=== PATIENT | female | born 1935 | race Caucasian/White ===

== ENCOUNTER 2017-04-19 06:09 | Day surgery (SDC) | payer OTHER ==
[2017-04-19] VITALS (8 sets, daily range): BP systolic 116–147; BP diastolic 52–75; PULSE 50–97; RESP 15–19; TEMP 97.6–97.8; O2SAT 51–98
[~2017-04-19] VITALS: Ht 152.4 cm; Wt 41.8 kg
[~2017-04-19 06:09] MED LIST: ACETAMIN-HYDROcod 325-5 MG PO; ALBU8I INH; APIX2.5T PO; ATRO17AE INH; CALC500T21 PO; CARD120T4 PO; COEN400C PO; FURO20 PO; ISOS20TA38 PO; LEVO.025 PO; NITR0.4S SL; REQU0.25 PO; SYMB160A INH
[2017-04-19] MEDS ORDERED: CART120C PO (06:49)
[2017-04-19] MEDS ORDERED: ISOS10TA3 PO (06:49)
[2017-04-19] MEDS ORDERED: ROPI0.25 PO (06:49)
[2017-04-19] MEDS ORDERED: CO Q100C9 PO (06:49)
[2017-04-19] MEDS ORDERED: ASPI-110 PO (06:49)
[2017-04-19] MEDS ORDERED: CALC1TAB87 PO (06:49)
[2017-04-19] MEDS ORDERED: APIX2.5T PO (06:49)
[2017-04-19] MEDS ORDERED: LEVO25TA4 PO (06:49)
[2017-04-19] MEDS ORDERED: NITR0.4S SL (06:49)
[2017-04-19] MEDS ORDERED: SODIUM CHLOR 0.9% 1000 ML INJ 1,000 ML IV SCH (07:15)
[2017-04-19] MEDS ORDERED: LIDOCAINE 1%/EPINEPHrine 1:100,000 SOLN 20 ML VIAL ONE (07:55)
[2017-04-19] MEDS ORDERED: SODIUM BICARBONATE 8.4% INJ 50 ML ONE (07:55)
[2017-04-19] MEDS ORDERED: fentaNYL CITRATE 250 MCG/5 ML AMP ONE (07:57)
[2017-04-19] MEDS ORDERED: THROMBIN (TOPICAL) 5,000 UNIT VIAL ONE (07:57)
[2017-04-19] MEDS ORDERED: MIDAZOLAM HCL 5 MG/5 ML VIAL ONE (07:57)
--- NOTE | 2017-04-19 10:24 | RADRPT ---
EXAM DATE/TIME: 04/19/2017 08:20 [facility] COMPARISON: No previous studies available for comparison. INDICATIONS : Elevated transaminaes. SEDATION TIME: 10 minutes BIOPSY SITE: liver MEDICATION(S): 1.) 1 mg midazolam (Versed) IV 2.) 50 mcg fentanyl (Sublimaze) IV DEVICE(S): 1.) 18 gauge BioPince needle 10cm MEDICAL HISTORY : None. SURGICAL HISTORY : Duodenal adenoma removed ENCOUNTER: Initial ACUITY: 1 day PAIN SCORE: 0/10 LOCATION: Right abdomen A total of one core specimen(s) were obtained and sent to the laboratory for pathologic evaluation. PROCEDURE: 1. CT guided liver biopsy. 2. Conscious sedation with continuous EKG and oximetry monitoring. Prior to the procedure informed consent was obtained. Any appropriate prior imaging studies were rev iewed. Using automated exposure control and adjustment of the mA and/or kV according to patient size, radiat ion dose was kept as low as reasonably achievable to obtain optimal diagnostic quality images.The sit e was prepped in a sterile fashion. Full sterile technique was used, including cap, mask, sterile gl oves and gown and a large sterile sheet. Hand hygiene and 2% chlorhexidine and/or betadine/alcohol p rep was utilized per protocol for cutaneous antisepsis. The skin and subcutaneous tissues were infil trated with local anesthetic solution. Under CT guidance an 18 gauge core of tissue was obtained. Followup scan reveals no evidence for hem orrhage. Follow-up CT scan reveals no hemorrhage. The patient tolerated the procedure well and there were no complications. The patient was returned to the Radiology Outpatient Unit in stable condition. CONCLUSION: Uncomplicated CT guided biopsy. Nilo Burr MD FACR on April 19, 2017 at 10:21 Board Certified Radiologist. This report was verified electronically.
== END 2017-04-19 13:38 | disposition home or self-care (01) ==
LOC: HRAD 06:09 → HRIP 06:10 → HRAD 13:38
PROVIDERS: ATTEND Family Medicine
DX: K75.9 Inflammatory liver disease, unspecified (principal)
CPT/HCPCS: 47000; 77012; 88307; 88313; J2250; J3010; J7030

== ENCOUNTER 2017-07-02 11:37 | Emergency (ER) | payer OTHER ==
[~2017-07-02] VITALS: Ht 152.4 cm; Wt 40.8 kg
[~2017-07-02 11:37] MED LIST changes: -ACETAMIN-HYDROcod 325-5 MG PO; -ALBU8I INH; +ASPI-110 PO; -ATRO17AE INH; +CALC1TAB87 PO; -CALC500T21 PO; -CARD120T4 PO; +CART120C PO; +CO Q100C9 PO; -COEN400C PO; -FURO20 PO; +ISOS10TA3 PO; -ISOS20TA38 PO; -LEVO.025 PO; +LEVO25TA4 PO; -REQU0.25 PO; +ROPI0.25 PO; -SYMB160A INH
[2017-07-02 11:43] VITALS: BP 131/66; PULSE 61; RESP 16; TEMP 97.7; O2SAT 97
--- NOTE | 2017-07-02 12:16 | PD ---
HPI Chief Complaint: Oral / Dental Pain or Problem Time Seen by Provider: 12:04 Travel History International Travel<30 days: No Contact w/Intl Traveler<30days: No Traveled to known affect area: No History of Present Illness HPI The patient was seen and examined in the presence of the nurse. This patient had dental work done 5 days ago. She had all of her upper teeth removed and dentures fitted. Unfortunately she did not stop her Eliquis and has been taking it all along. She has bleeding from some of the extraction sites in the right side of her upper jaw. She says she does not know why she takes it. She was not told to stop it. Severity is moderate. No alleviating factors. Denies presyncopal symptoms. Duration 5 days PFSH Past Medical History Hx Anticoagulant Therapy: Yes Atrial Fibrillation: Yes Cancer: No Cardiovascular Problems: Yes (a-fib) Coronary Artery Disease: Yes Diabetes: No Diminished Hearing: No Endocrine: Yes Gastrointestinal Disorders: Yes (POLYP, ABDOMINAL PAIN) Genitourinary: No Hepatitis: No Hiatal Hernia: No Hypertension: Yes Immune Disorder: No Musculoskeletal: Yes (ARTHRITIS, BACK) Neurologic: Yes (RESTLESS LEG SYNDROME) Psychiatric: No Reproductive: Yes (PARTIAL HYSTERECTOMY) Respiratory: No Thyroid Disease: Yes ?: Not Past Surgical History AICD: No Body Medical Devices: GREY IN BACK Endocrine Surgery: Yes (THYROIDECTOMY) Gynecologic Surgery: Yes (PARTIAL HYSTERECTOMY) Hysterectomy: Yes Joint Replacement: No Pacemaker: No Social History Alcohol Use: Yes (wine at dinner) Tobacco Use: No Substance Use: No Allergies-Medications (Allergen,Severity, Reaction): Coded Allergies: Sulfa (Sulfonamide Antibiotics) (Unverified Allergy, Severe, RASH, 07/02/17) CAN'T REMEMBER penicillin G (Unverified Allergy, Severe, RASH, 07/02/17) CAN'T REMEMBER aspirin (Unverified Allergy, Intermediate, RASH, 07/02/17) Reported Meds & Prescriptions Reported Meds & Active Scripts Active Reported Co Q 10 (Coenzyme Q10 (Ubidecarenone)) 100 Mg Cap 200 Mg PO DAILY Nitrostat SL (Nitroglycerin) 0.4 Mg Subl 0.4 Mg SL DIRECTED PRN 1 tablet under the tongue as needed for chest pain. Repeat every 5 minutes for a total of 3 DOSES or call 911 if NO relief. Ropinirole 0.25 Mg Tab 0.25 Mg PO TID Eliquis (Apixaban) 2.5 Mg Tab 2.5 Mg PO BID Calcium 600 with Vitamin D (Calcium Carbonate-Cholecalciferol) 600-400 mg-Unit Tab 1 Tab PO DAILY Levothyroxine (Levothyroxine Sodium) 25 Mcg Tab 25 Mcg PO DAILY Isosorbide Mononitrate 10 Mg Tab 5 Mg PO DAILY Take 2 doses 7 hours apart. Cartia Xt (Diltiazem ER 24 HR) 120 Mg Caper 180 Mg PO DAILY Review of Systems General / Constitutional: No: Fever Eyes: No: Visual changes HENT: Positive: Gingival Bleeding, Dental Difficulties, No: Headaches Cardiovascular: No: Chest Pain or Discomfort Respiratory: No: Shortness of Breath Gastrointestinal: No: Abdominal Pain Genitourinary: No: Dysuria Musculoskeletal: No: Pain Skin: No Rash Neurologic: No: Weakness Psychiatric: No: Depression Endocrine: No: Polydipsia Hematologic/Lymphatic: No: Easy Bruising Physical Exam Narrative GENERAL: Well-nourished, well-developed patient in no apparent distress. SKIN: Focused skin assessment reveals no rash and nodules. Skin is Warm and dry. HEAD: Atraumatic. Normocephalic. EYES: Pupils equal and round. No scleral icterus. No injection or drainage. ENT: No nasal bleeding or discharge. Mucous membranes pink and moist. Oral cavity exam reveals all of her upper teeth have been removed. She has oozing of blood from several of the sockets on the right upper jaw. NECK: Trachea midline. No JVD. CARDIOVASCULAR: Regular rate and rhythm. No murmur appreciated. RESPIRATORY: No accessory muscle use. Clear to auscultation. Breath sounds equal bilaterally. GASTROINTESTINAL: Abdomen soft, non-tender, nondistended. Hepatic and splenic margins not palpable. MUSCULOSKELETAL: No obvious deformities. No clubbing. No cyanosis. No edema. NEUROLOGICAL: Awake and alert. No obvious cranial nerve deficits. Motor grossly within normal limits. Normal speech. PSYCHIATRIC: Appropriate mood and affect; insight and judgment normal. Data Data Last Documented VS Vital Signs Date Time Temp Pulse Resp B/P (MAP) Pulse Ox O2 Delivery O2 Flow Rate FiO2 07/02/17 11:43 97.7 61 16 131/66 (87) 97 Orders Orders Iv Access Insert/Monitor (07/02/17 12:13) Complete Blood Count With Diff (07/02/17 12:13) Basic Metabolic Panel (Bmp) (07/02/17 12:13) Gelatin 12 Mm/7 Mm Top (Gelfoam 12 Mm/7 (07/02/17 13:15) Lidoca-Epi Pf 2%-1:200,000 Inj (Xylocain (07/02/17 13:15) Labs Laboratory Tests Test 07/02/17 12:28 White Blood Count 5.9 TH/MM3 Red Blood Count 3.79 MIL/MM3 Hemoglobin 11.5 GM/DL Hematocrit 35.0 % Mean Corpuscular Volume 92.4 FL Mean Corpuscular Hemoglobin 30.3 PG Mean Corpuscular Hemoglobin Concent 32.8 % Red Cell Distribution Width 13.9 % Platelet Count 209 TH/MM3 Mean Platelet Volume 8.3 FL Neutrophils (%) (Auto) 68.8 % Lymphocytes (%) (Auto) 22.4 % Monocytes (%) (Auto) 6.3 % Eosinophils (%) (Auto) 1.7 % Basophils (%) (Auto) 0.8 % Neutrophils # (Auto) 4.1 TH/MM3 Lymphocytes # (Auto) 1.3 TH/MM3 Monocytes # (Auto) 0.4 TH/MM3 Eosinophils # (Auto) 0.1 TH/MM3 Basophils # (Auto) 0.0 TH/MM3 CBC Comment AUTO DIFF Differential Comment AUTO DIFF CONFIRMED Blood Urea Nitrogen 25 MG/DL Creatinine 0.69 MG/DL Random Glucose 95 MG/DL Calcium Level 9.5 MG/DL Sodium Level 129 MEQ/L Potassium Level 4.2 MEQ/L Chloride Level 92 MEQ/L Carbon Dioxide Level 32.6 MEQ/L Anion Gap 4 MEQ/L Estimat Glomerular Filtration Rate 81 ML/MIN [facility] Medical Decision Making Medical Screen Exam Complete: Yes Emergency Medical Condition: Yes Medical Record Reviewed: Yes Differential Diagnosis Gingival bleeding, anticoagulation, postsurgical bleeding Narrative Course I have reviewed the patient's electronic medical record. IV placed CBC shows hemoglobin 11.5 which is better than her last several checks Metabolic profile shows minor abnormalities Having her bite down on gauze roll to apply some direct pressure to the bleeding sites. Direct pressure did not seem to help I spoke with her oral surgeon who is Dr. Maharaj He does not have privileges here but recommended I injected with lidocaine with epinephrine and either use Gelfoam dressing or suture the sockets closed that are bleeding Procedure note: Patient gives verbal consent for the following procedure I used suction to clear out the oral cavity of blood and clots I injected 7 cc of lidocaine with 2% epinephrine around sockets of teeth 1 and 2 which are the only bleeding sockets in her jaw I tried to place Gelfoam dressings these did not sit right and didn't help I then used 2-0 Vicryl and placed 2 sutures across sockets 1 and 2 This stopped the bleeding sufficiently No complications, was tolerated well Let her sit for while and then reassess the bleeding site and there is no bleeding I reviewed what I did with Dr. Maharaj and he will see the patient in his office for follow-up If there is further bleeding patient should call him Avoid blood thinner and use only soft diet such as pudding or Jell-O Diagnosis Primary Impression: Gingival hemorrhage Additional Impressions: Postoperative complication Qualified Codes: K91.841 - Postprocedural hemorrhage of a digestive system organ or structure following other procedure Chronic anticoagulation Additional Instructions: Call Dr. Maharaj if there is any further bleeding Use only soft diet such as pudding or Jell-O Follow-up with Dr. Maharaj soon as the iday weekend is over Med/Other Pt SpecificInfo: Other Disposition: 01 DISCHARGE HOME Condition: Stable Burak De León MD Jul 02, 2017 12:16
[2017-07-02 12:34] LABS: AUTOMATED NEUTROPHIL # 4.1 TH/MM3 (1.8-7.7); BASOPHIL % 0.8 % (0.0-2.0); EOSINOPHIL # 0.1 TH/MM3 (0-0.4); EOSINOPHIL % 1.7 % (0.0-4.0); LYMPH % 22.4 % (9.0-44.0); LYMPHOCYTE # 1.3 TH/MM3 (1.0-4.8); MEAN CELL VOLUME 92.4 FL (80.0-100.0); MEAN CORPUSCULAR HEMOGLOBIN 30.3 PG (27.0-34.0); MEAN CORPUSCULAR HGB CONC 32.8 % (32.0-36.0); MONO % 6.3 % (0.0-8.0); NEUT % 68.8 % (16.0-70.0); PLATELET COUNT 209 TH/MM3 (150-450); RED BLOOD COUNT 3.79 MIL/MM3 (4.00-5.30); RED CELL DISTRIBUTION WIDTH 13.9 % (11.6-17.2); WHITE BLOOD COUNT 5.9 TH/MM3 (4.0-11.0)
[2017-07-02 12:35] LABS: HEMO FLAGS AUTO DIFF
[2017-07-02 12:43] LABS: POTASSIUM 4.2 MEQ/L (3.5-5.1)
[2017-07-02 12:46] LABS: BICARBONATE 32.6 MEQ/L (21.0-32.0)
[2017-07-02 12:57] LABS: SCAN/DIFF AUTO DIFF CONFIRMED
[2017-07-02] MEDS ORDERED: LIDOCAINE 1%/EPINEPHrine 1:100,000 SOLN 50 ML VIAL INFIL ONE (13:15)
[2017-07-02] MEDS ORDERED: LIDOCAINE 2%/EPINEPHrine PF 1:200,000 20ML SDV INFIL ONE (13:15)
[2017-07-02] MEDS ORDERED: LIDOCAINE 1%/EPINEPHrine 1:100,000 SOLN 20 ML VIAL INFIL ONE ×3 (13:15)
[2017-07-02] MEDS ORDERED: GELATIN 12 MM/7 MM FOAM TOPICAL ONE (13:15)
== END 2017-07-02 14:31 | disposition home or self-care (01) ==
LOC: PHED 11:37
DX: K91.841 Postprocedural hemorrhage of a digestive system organ or structure following other procedure (principal); Z79.01 Long term (current) use of anticoagulants; I10 Essential (primary) hypertension; I25.10 Atherosclerotic heart disease of native coronary artery without angina pectoris; I48.91 Unspecified atrial fibrillation; Z88.0 Allergy status to penicillin; M19.90 Unspecified osteoarthritis, unspecified site; G25.81 Restless legs syndrome
CPT/HCPCS: 12011; 80048; 85025

== ENCOUNTER 2017-08-12 14:52 | Inpatient (IN) | payer OTHER, MEDICARE ==
[~2017-08-12] VITALS: Ht 152.4 cm; Wt 42.5 kg
[2017-08-12] VITALS (8 sets, daily range): BP systolic 95–145; BP diastolic 58–64; PULSE 60–62; RESP 12–18; TEMP 97.5–97.9; O2SAT 93–99
[~2017-08-12 14:52] MED LIST changes: -ASPI-110 PO
[2017-08-12] MEDS ORDERED: MORPHINE SULFATE 2 MG/ML INJ IV PUSH ONE ×2 (16:00→18:30)
[2017-08-12] MEDS ORDERED: ONDANSETRON HCL 4 MG/2 ML VIAL IV PUSH ONE (16:00)
[2017-08-12] MEDS ORDERED: SODIUM CHLORID 0.9% 500 ML INJ 500 ML IV ONE (16:00)
--- NOTE | 2017-08-12 16:00 | PD ---
HPI Chief Complaint: Fall Time Seen by Provider: 15:53 Travel History International Travel<30 days: No Contact w/Intl Traveler<30days: No Traveled to known affect area: No History of Present Illness HPI This is an 81-year-old female who presents to the emergency department having had a fall. She says she fell backwards in her house landing on her back and hitting her head. Her back pain is constant, severe, throbbing, and is radiating into her abdomen. She had one episode of vomiting with the VAC and she feels very nauseous. She's never had pain like this before. She says she didn't pass out. PFSH Past Medical History Hx Anticoagulant Therapy: Yes Atrial Fibrillation: Yes Cancer: No Cardiovascular Problems: Yes (a-fib) Coronary Artery Disease: Yes Diabetes: No Diminished Hearing: No Endocrine: Yes Gastrointestinal Disorders: Yes (POLYP, ABDOMINAL PAIN) Genitourinary: No Hepatitis: No Hiatal Hernia: No Hypertension: Yes Immune Disorder: No Medical other: No Musculoskeletal: Yes (ARTHRITIS, BACK) Neurologic: Yes (RESTLESS LEG SYNDROME) Psychiatric: No Reproductive: Yes (PARTIAL HYSTERECTOMY) Respiratory: No Thyroid Disease: Yes Past Surgical History AICD: No Body Medical Devices: GREY IN BACK Endocrine Surgery: Yes (THYROIDECTOMY) Gynecologic Surgery: Yes (PARTIAL HYSTERECTOMY) Hysterectomy: Yes Joint Replacement: No Pacemaker: No Social History Alcohol Use: Yes (wine at dinner) Tobacco Use: No Substance Use: No Allergies-Medications (Allergen,Severity, Reaction): Coded Allergies: Sulfa (Sulfonamide Antibiotics) (Unverified Allergy, Severe, RASH, ) CAN'T REMEMBER penicillin G (Unverified Allergy, Severe, RASH, 08/12/17) CAN'T REMEMBER aspirin (Unverified Allergy, Intermediate, RASH, 08/12/17) Reported Meds & Prescriptions Reported Meds & Active Scripts Active Reported Co Q 10 (Coenzyme Q10 (Ubidecarenone)) 100 Mg Cap 200 Mg PO DAILY Nitrostat SL (Nitroglycerin) 0.4 Mg Subl 0.4 Mg SL DIRECTED PRN 1 tablet under the tongue as needed for chest pain. Repeat every 5 minutes for a total of 3 DOSES or call 911 if NO relief. Ropinirole 0.25 Mg Tab 0.25 Mg PO TID Eliquis (Apixaban) 2.5 Mg Tab 2.5 Mg PO BID Calcium 600 with Vitamin D (Calcium Carbonate-Cholecalciferol) 600-400 mg-Unit Tab 1 Tab PO DAILY Levothyroxine (Levothyroxine Sodium) 25 Mcg Tab 25 Mcg PO DAILY Isosorbide Mononitrate 10 Mg Tab 5 Mg PO DAILY Take 2 doses 7 hours apart. Cartia Xt (Diltiazem ER 24 HR) 120 Mg Caper 180 Mg PO DAILY Review of Systems Except as stated in HPI: all other systems reviewed are Neg Physical Exam Narrative GENERAL: Uncomfortable appearing SKIN: Focused skin assessment warm and dry. HEAD: Atraumatic. Normocephalic. EYES: Pupils equal and round. No injection or drainage. ENT: Moist mucous membranes NECK: Trachea midline. No cervical spine tenderness. CARDIOVASCULAR: Regular rate and rhythm. No murmur appreciated. RESPIRATORY: Clear to auscultation. Breath sounds equal bilaterally. GASTROINTESTINAL: Abdomen soft, tender to palpation in the lower abdomen with no rebound or guarding. MUSCULOSKELETAL: Pain with flexion at the right hip. Tender to palpation along the midline lumbar spinous processes. NEUROLOGICAL: Awake and alert. No obvious cranial nerve deficits. Moving all extremities. PSYCHIATRIC: Appropriate mood and affect; insight and judgment normal. Data Data Last Documented VS Vital Signs Date Time Temp Pulse Resp B/P (MAP) Pulse Ox O2 Delivery O2 Flow Rate FiO2 08/12/17 18:46 62 18 133/64 (87) 93 Room Air 08/12/17 14:[address] Brain W/O Iv Contrast(Rout) (08/12/17 ) Chest, Single Ap (08/12/17 ) Ct Abd/Pel W Iv Contrast(Rout) (08/12/17 ) Ct Lumb Spine W/O Contrast (08/12/17 ) Morphine Inj (Morphine Inj) (08/12/17 16:00) Ondansetron Inj (Zofran Inj) (08/12/17 16:00) Sodium Chlorid 0.9% 500 Ml Inj (Ns 500 M (08/12/17 16:00) Hip, Uni(Ap&Lat) W Ap Pelvis (08/12/17 ) Iohexol 350 Inj (Omnipaque 350 Inj) (08/12/17 16:30) Ng Gastric Tube Insert/Monitor (08/12/17 17:26) Complete Blood Count With Diff (08/12/17 17:43) Comprehensive Metabolic Panel (08/12/17 17:43) Lactic Acid (08/12/17 17:43) Urinalysis - C+S If Indicated (08/12/17 17:43) Cath For Specimen (08/12/17 17:43) Morphine Inj (Morphine Inj) (08/12/17 18:30) Admit Order (Ed Use Only) (08/12/17 19:17) Ciprofloxacin 400 Mg Premix (Cipro 400 M (08/12/17 19:30) Metronidazole 500 Mg Inj (Flagyl 500 Mg (08/12/17 19:30) Blood Culture (08/12/17 19:21) Lactic Acid (08/12/17 19:21) Labs Laboratory Tests Test 08/12/17 18:15 White Blood Count 12.8 TH/MM3 Red Blood Count 3.67 MIL/MM3 Hemoglobin 11.1 GM/DL Hematocrit 33.5 % Mean Corpuscular Volume 91.4 FL Mean Corpuscular Hemoglobin 30.2 PG Mean Corpuscular Hemoglobin Concent 33.0 % Red Cell Distribution Width 14.0 % Platelet Count 251 TH/MM3 Mean Platelet Volume 8.8 FL CBC Comment AUTO DIFF Differential Total Cells Counted 100 Neutrophils % (Manual) 83 % Band Neutrophils % 12 % Lymphocytes % 1 % Monocytes % 4 % Neutrophils # (Manual) 12.2 TH/MM3 Differential Comment FINAL DIFF MANUAL Platelet Estimate NORMAL Platelet Morphology Comment NORMAL Blood Urea Nitrogen 18 MG/DL Creatinine 0.69 MG/DL Random Glucose 92 MG/DL Total Protein 7.1 GM/DL Albumin 3.4 GM/DL Calcium Level 8.8 MG/DL Alkaline Phosphatase 62 U/L Aspartate Amino Transf (AST/SGOT) 43 U/L Alanine Aminotransferase (ALT/SGPT) 28 U/L Total Bilirubin 0.9 MG/DL Sodium Level 127 MEQ/L Potassium Level 4.5 MEQ/L Chloride Level 87 MEQ/L Carbon Dioxide Level 34.8 MEQ/L Anion Gap 5 MEQ/L Estimat Glomerular Filtration Rate 81 ML/MIN Lactic Acid Level 1.3 mmol/L MDM Medical Decision Making Medical Screen Exam Complete: Yes Emergency Medical Condition: Yes Interpretation(s) Afebrile, no tachycardia, normotensive Mild hypoxia Mild leukocytosis 12% bandemia normal lactic acid high grade partial small bowel obstruction on CT Differential Diagnosis Lumbar compression fracture, intracranial hemorrhage, pneumothorax, hemothorax, rib fracture Narrative Course This is an 81-year-old female who presents to the emergency department initially reporting a fall but also complaining of abdominal pain and vomiting. She is placed in a monitor and an IV was established. Labs were obtained which demonstrate a leukocytosis with a 12% bandemia. Cultures were obtained and the patient was started on Cipro and Flagyl. CT abdomen and pelvis demonstrates a high-grade partial small bowel obstruction. I discussed this with Dr. Pavon as one year ago he didn't open duodenal resection on the patient. An NG tube was placed and the patient will be admitted to the hospital for further management. Upon my reassessment the patient's oxygen saturation was in the 80-89% range following NG tube placement. She appears very comparable and is awake and alert. Plan to put her on some supplemental oxygen. Her chest x-rays reassuring currently. It Is not impossible that she aspirated prior to arrival and will have some delayed chest x-ray findings she should be closely observed. Physician Communication Physician Communication Discussed with Dr. Napoles and Dr. Astudillo Diagnosis Primary Impression: Small bowel obstruction Admitting Information Admitting Physician Requests: Admit Mariana Arevalo MD Aug 12, 2017 16:00
[2017-08-12] MEDS ORDERED: IOHEXOL 350 MG/ML 10 ML VIAL (for RAD DIAG) IVCONTRAST ONE (16:30)
--- NOTE | 2017-08-12 16:43 | RADRPT ---
EXAM DATE/TIME: 08/12/2017 16:12 [facility] COMPARISON: CHEST SINGLE AP, May 20, 2016, 11:01. INDICATIONS : Fell, complains of right hip pain. MEDICAL HISTORY : Atrial fib, arthritis SURGICAL HISTORY : Left hip pinning ENCOUNTER: Initial ACUITY: 1 day PAIN SCORE: 10/10 LOCATION: Right hip FINDINGS: The cardiac silhouette is enlarged in transverse diameter. The aortic knob is prominent with tortuosi ty of the descending thoracic aorta. The lungs are free of acute parenchymal opacity. No effusions ar e identified. Macro fibrosis CONCLUSION: 1. Cardiomegaly Chronic fibrotic changes bilaterally unchanged from the prior study. No acute pulmona ry disease. Phil Reed MD on August 12, 2017 at 16:41 Board Certified Radiologist. This report was verified electronically.
--- NOTE | 2017-08-12 16:44 | RADRPT ---
EXAM DATE/TIME: 08/12/2017 16:12 [facility] COMPARISON: No previous studies available for comparison. INDICATIONS : Fall, complains of right hip pain. MEDICAL HISTORY : Atrial fib, arthritis SURGICAL HISTORY : Left hip pinning ENCOUNTER: Initial ACUITY: 1 day PAIN SCORE: 10/10 LOCATION: Right hip FINDINGS: Osseous structures are osteopenic. There is severe osteoarthritis involving the sacralized joints mehreen aterally. There is no evidence of acute fracture. Bony mineralization is normal. Joint spaces are leonor ntained. Old left femoral neck fracture is present. CONCLUSION: 1. There is no evidence of acute fracture. Phil Reed MD on August 12, 2017 at 16:42 Board Certified Radiologist. This report was verified electronically.
--- NOTE | 2017-08-12 17:00 | RADRPT ---
EXAM DATE/TIME: 08/12/2017 16:25 [facility] COMPARISON: CT BRAIN W/O CONTRAST, July 01, 2016, 9:43. INDICATIONS : Fall. RADIATION DOSE: 59.59 CTDIvol (mGy) MEDICAL HISTORY : Cardiovascular disease. Hypertension. Restless leg, afib, CAD. SURGICAL HISTORY : Hysterectomy. ENCOUNTER: Initial ACUITY: 1 day PAIN SCALE: 8/10 LOCATION: cranial TECHNIQUE: Multiple contiguous axial images were obtained of the head. Using automated exposure control and adj ustment of the mA and/or kV according to patient size, radiation dose was kept as low as reasonably a chievable to obtain optimal diagnostic quality images. DICOM format image data is available electro nically for review and comparison. FINDINGS: CEREBRUM: The ventricles are normal for age. No evidence of midline shift, mass lesion, hemorrhage or acute in farction. No extra-axial fluid collections are seen. POSTERIOR FOSSA: The cerebellum and brainstem are intact. The 4th ventricle is midline. The cerebellopontine angle i s unremarkable. EXTRACRANIAL: The visualized portion of the orbits is intact. SKULL: The calvaria is intact. No evidence of skull fracture. CONCLUSION: No acute disease. No evidence of acute infarct, hemorrhage, mass or edema. Eugene Macias MD on August 12, 2017 at 16:57 Board Certified Radiologist. This report was verified electronically.
--- NOTE | 2017-08-12 17:20 | RADRPT ---
EXAM DATE/TIME: 08/12/2017 16:31 [facility] COMPARISON: CT ABDOMEN & PELVIS W CONTRAST, April 21, 2016, 9:49. INDICATIONS : Fall. IV CONTRAST: 96 cc Omnipaque 350 (iohexol) IV ORAL CONTRAST: No oral contrast ingested. RADIATION DOSE: 4.79 CTDIvol (mGy) MEDICAL HISTORY : Cardiovascular disease. Hypertension. Afib, ZORAN, Restless leg. SURGICAL HISTORY : Hysterectomy. ENCOUNTER: Initial ACUITY: 1 day PAIN SCALE: 8/10 LOCATION: Bilateral abdominal TECHNIQUE: Volumetric scanning of the abdomen and pelvis was performed. Using automated exposure control and ad justment of the mA and/or kV according to patient size, radiation dose was kept as low as reasonably achievable to obtain optimal diagnostic quality images. DICOM format image data is available electro nically for review and comparison. FINDINGS: LOWER LUNGS: The visualized lower lungs are clear. LIVER: Homogeneous density without lesion. There is no dilation of the biliary tree. No calcified gallston es. SPLEEN: Normal size without lesion. PANCREAS: 1.9 cm cyst is identified in the head of the pancreas. 6 mm cyst is identified to the pancreas. Pancr eas is otherwise unremarkable. KIDNEYS: Normal in size and shape. There is no mass, stone or hydronephrosis. 2 cm cyst is seen off the midpo le left kidney. ADRENAL GLANDS: Within normal limits. VASCULAR: There is no aortic aneurysm. BOWEL/MESENTERY: The stomach is distended with fluid. There are multiple loops of distended small bowel containing flu id. A transition is identified in the mid right abdomen to normal caliber small bowel. The colon cont ains gas and stool but is relatively collapsed. ABDOMINAL WALL: Within normal limits. RETROPERITONEUM: There is no lymphadenopathy. BLADDER: No wall thickening or mass. REPRODUCTIVE: Uterus is not visualized. INGUINAL: There is no lymphadenopathy or hernia. MUSCULOSKELETAL: Lumbar fusion apparatus is identified. CONCLUSION: 1. Proximal to mid small bowel ileus characteristic of a high grade partial small bowel obstruction. Etiology of obstruction is not clearly visualized. 2. Pancreatic cysts 3. No evidence of extraintestinal fluid collections, free air or suspicious mass. Eugene Macias MD on August 12, 2017 at 16:59 Board Certified Radiologist. This report was verified electronically.
--- NOTE | 2017-08-12 17:28 | RADRPT ---
EXAM DATE/TIME: 08/12/2017 16:31 [facility] COMPARISON: CT LUMBAR SPINE W/O CONTRAST, July 03, 2016, 8:20. INDICATIONS : Fall. RADIATION DOSE: 4.79 CTDIvol (mGy) ; Reconstructed from previous dataset, no dose MEDICAL HISTORY : Cardiovascular disease. Hypertension. afib, CAD, restless leg SURGICAL HISTORY : Hysterectomy. ENCOUNTER: Initial ACUITY: 1 day PAIN SCALE: 8/10 LOCATION: Bilateral lower back TECHNIQUE: Volumetric scanning of the lumbar spine was performed. Multiplanar reconstructions in the sagittal, coronal and oblique axial planes were performed. Using automated exposure control and adjustment of the mA and/or kV according to patient size, radiation dose was kept as low as reasonably achievable t o obtain optimal diagnostic quality images. DICOM format image data is available electronically for review and comparison. FINDINGS: Postsurgical changes following lumbar fusion from from L3-S1 are again noted. The appearance of the lumbar spine is stable compared to previous exam on 07/03/2060. Advanced degenerative disc disease is identified at the L2-3 level. There no findings to suggest acute fracture or traumatic listhesis. There are no destructive bone changes. CONCLUSION: 1. Status post lumbar fusion from L3-S1 with significant metallic artifact obscuring the bony and sof t tissue structures. 2. Stable exam without evidence of acute fracture or traumatic subluxation. 3. Advanced degenerative disc disease at L2-3. 1. Eugene Macias MD on August 12, 2017 at 17:21 Board Certified Radiologist. This report was verified electronically.
[2017-08-12 18:19] LABS: HEMATOCRIT 33.5 % (35.0-46.0); MEAN CELL VOLUME 91.4 FL (80.0-100.0); MEAN CORPUSCULAR HEMOGLOBIN 30.2 PG (27.0-34.0); PLATELET COUNT 251 TH/MM3 (150-450); RED BLOOD COUNT 3.67 MIL/MM3 (4.00-5.30); WHITE BLOOD COUNT 12.8 TH/MM3 (4.0-11.0)
[2017-08-12 18:24] LABS: HEMO FLAGS AUTO DIFF
[2017-08-12 18:31] LABS: CHLORIDE 87 MEQ/L (98-107); POTASSIUM 4.5 MEQ/L (3.5-5.1); SODIUM (NA) 127 MEQ/L (136-145)
[2017-08-12 18:35] LABS: ANION GAP 5 MEQ/L (5-15); BICARBONATE 34.8 MEQ/L (21.0-32.0); BLOOD UREA NITROGEN 18 MG/DL (7-18)
[2017-08-12 18:38] LABS: ALT (GPT) 28 U/L (10-53); AST (GOT) 43 U/L (15-37); GLOMERULAR FILTRATION RATE 81 ML/MIN (>89)
[2017-08-12 18:39] LABS: TOTAL BILIRUBIN ADULT 0.9 MG/DL (0.2-1.0)
[2017-08-12 18:41] LABS: ALKALINE PHOSPHATASE 62 U/L (45-117)
[2017-08-12 19:12] LABS: BANDS 12 % (0-6); NEUTROPHIL # MANUAL DIFF 12.2 TH/MM3 (1.8-7.7); POLYS (SEG NEUTROPHILS) 83 % (16-70); WBC DIFF SAMPLE 100
[2017-08-12 19:13] LABS: PLATELET ESTIMATE SMEAR NORMAL (NORMAL); PLATELET MORPHOLOGY NORMAL (NORMAL); SCAN/DIFF FINAL DIFF MANUAL
[2017-08-12] MEDS ORDERED: CIPROFLOXACIN 400 MG PREMIX 200 ML IV ONE ×2 (19:30→23:15)
[2017-08-12] MEDS ORDERED: metroNIDAZOLE 500 MG INJ 100 ML IV ONE (19:30)
[2017-08-12] MEDS ORDERED: SODIUM CHLORIDE 0.9% FLUSH 10 ML FLUSH IV FLUSH PRN (19:45)
[2017-08-12] MEDS ORDERED: BISACODYL 10 MG SUPP RECTAL PRN (19:45)
[2017-08-12] MEDS ORDERED: MAGNESIUM HYDROXIDE SUSP 30 ML CUP PO PRN (19:45)
[2017-08-12] MEDS ORDERED: RESP: ALBUTEROL 2.5 MG/IPRATROPIUM 0.5 MG NEB (PRN) NEB (19:45)
[2017-08-12] MEDS ORDERED: LACTULOSE SYRUP 20 GM/30 ML CUP PO PRN (19:45)
[2017-08-12] MEDS ORDERED: SENNOSIDES 8.6 MG TAB PO PRN (19:45)
[2017-08-12] MEDS ORDERED: MORPHINE SULFATE 4 MG/ML INJ IV PUSH PRN ×2 (19:45)
[2017-08-12] MEDS: SODIUM CHLOR 0.9% 1000 ML INJ 1,000 ML IV SCH (20:17)
[2017-08-12] MEDS ORDERED: ACETAMINOPHEN 1000 MG/100 ML 100 ML IV PRN (20:30)
[2017-08-12 20:53] LABS: GLUCOSE,URINE NEG (NEG); KETONE, URINE NEG (NEG); NITRITE,URINE POS (NEG); PH, URINE GREATER/EQUAL 9.0 (5.0-8.5)
[2017-08-12] MEDS: SODIUM CHLORIDE 0.9% FLUSH 10 ML FLUSH IV FLUSH SCH (21:00)
[2017-08-12 21:01] LABS: BLOOD, URINE TRACE (NEG)
[2017-08-12 21:06] LABS: METHOD OF COLLECTION CLEAN CATCH
[2017-08-12 21:07] LABS: URINE COLOR YELLOW (YELLW/STRAW)
[2017-08-12 21:18] LABS: BACTERIA, URINE FEW /hpf; COMMENT (UR) CULTURE INDICATED; CULTURE IF INDICATED CULTURE INDICATED; TRIPLE PHOSPHATE CRYSTAL,URINE MANY /hpf
[2017-08-12] MEDS: DOCUSATE SODIUM 50 MG/SENNA 8.6 MG TAB PO SCH (23:21)
[2017-08-13] VITALS (25 sets, daily range): BP systolic 102–146; BP diastolic 51–87; PULSE 54–70; RESP 12–48; TEMP 97.8–98.2; O2SAT 98–100
[2017-08-13] MEDS: ONDANSETRON HCL 4 MG/2 ML VIAL IV PUSH PRN ×2 (02:40→14:45)
[2017-08-13] MEDS: metroNIDAZOLE 500 MG INJ 100 ML IV SCH ×2 (02:40→10:57)
[2017-08-13 05:53] LABS: AUTOMATED NEUTROPHIL # 9.4 TH/MM3 (1.8-7.7); BASOPHIL # 0.2 TH/MM3 (0-0.2); BASOPHIL % 1.6 % (0.0-2.0); EOSINOPHIL % 0.1 % (0.0-4.0); HEMATOCRIT 32.5 % (35.0-46.0); LYMPH % 4.9 % (9.0-44.0); LYMPHOCYTE # 0.6 TH/MM3 (1.0-4.8); MEAN CELL VOLUME 92.1 FL (80.0-100.0); MEAN CORPUSCULAR HEMOGLOBIN 29.4 PG (27.0-34.0); NEUT % 81.4 % (16.0-70.0); PLATELET COUNT 227 TH/MM3 (150-450); RED BLOOD COUNT 3.52 MIL/MM3 (4.00-5.30); RED CELL DISTRIBUTION WIDTH 14.1 % (11.6-17.2); WHITE BLOOD COUNT 11.6 TH/MM3 (4.0-11.0)
[2017-08-13 06:04] LABS: HEMO FLAGS DIFF FINAL
[2017-08-13 06:05] LABS: CHLORIDE 91 MEQ/L (98-107); POTASSIUM 4.2 MEQ/L (3.5-5.1); SODIUM (NA) 128 MEQ/L (136-145)
[2017-08-13 06:09] LABS: ANION GAP 7 MEQ/L (5-15); BICARBONATE 30.4 MEQ/L (21.0-32.0); BLOOD UREA NITROGEN 15 MG/DL (7-18)
[2017-08-13 06:12] LABS: ALT (GPT) 24 U/L (10-53); AST (GOT) 39 U/L (15-37); GLOMERULAR FILTRATION RATE 94 ML/MIN (>89)
[2017-08-13 06:14] LABS: TOTAL BILIRUBIN ADULT 0.9 MG/DL (0.2-1.0)
[2017-08-13 06:15] LABS: ALKALINE PHOSPHATASE 57 U/L (45-117)
[2017-08-13] MEDS: SODIUM CHLOR 0.9% 1000 ML INJ 1,000 ML IV SCH ×3 (06:40→22:24)
[2017-08-13] MEDS ORDERED: CIPROFLOXACIN 400 MG PREMIX 200 ML IV SCH ×2 (09:00→11:00)
[2017-08-13] MEDS: SODIUM CHLORIDE 0.9% FLUSH 10 ML FLUSH IV FLUSH SCH ×2 (09:00→20:26)
--- NOTE | 2017-08-13 09:04 | MB ---
cc: JACQUELINE COREAS DATE OF CONSULTATION: 08/13/2017 REASON FOR CONSULTATION Possible small bowel obstruction. 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 The patient underwent evaluation including CT scans of her back and her abdomen and was incidentally found to have some dilated loops of small bowel with an ileus versus obstruction. The patient was admitted for further supportive care and pain control. Also on evaluation it was noted the patient had elevated leukocytosis and positive urinalysis concerning for urinary tract infection. The patient states that she has passed gas this morning, last time she had a bowel movement was this morning as well. She has had no nausea, vomiting and currently an NG tube has not drained but minimal saliva. The patient has had no previous history of small bowel obstruction. REVIEW OF SYSTEMS A 12-point review of systems was conducted with the patient and is negative except for the pertinent positives mentioned above in history present illness. PAST MEDICAL HISTORY 1. Atrial fibrillation. 2. Restless leg syndrome. 3. Arthritis. 4. Hypertension. PAST SURGICAL HISTORY 1. Duodenal resection. 2. Partial hysterectomy. 3. Thrombectomy for lower extremity thrombus. 4. Thyroidectomy. 5. Back surgeries with back fusion. SOCIAL HISTORY The patient occasionally drinks wine with dinner. Denies tobacco or drug use. ALLERGIES SULFA, PENICILLIN, ASPIRIN. MEDICATIONS Home medications: 1. CoQ10. 2. Nitrostat. 3. Ropinirole. 4. Eliquis. 5. Calcium. 6. Levothyroxine. 7. Isosorbide mononitrate. 8. Cartia XT. PHYSICAL EXAMINATION VITAL SIGNS: Blood pressure 145/59, temperature 97.9 degrees, heart rate 62. GENERAL: The patient is a thin female, in no acute distress. HEENT: Head is normocephalic, atraumatic. Pupils round, reactive to accommodation and light. Sclerae is anicteric. Oral cavity is clear. Airway is patent. NECK: Neck is supple. No JVD. LUNGS: Clear to auscultation bilaterally. Nonlabored breathing pattern. HEART: Irregular. No murmurs. ABDOMEN: Soft, minimally distended, nontender to palpation. Normal bowel sounds. No ascites. No organomegaly. No hernias. EXTREMITIES: No clubbing, cyanosis or edema. BACK: No CVA tenderness. NEUROLOGIC: The patient is alert and oriented x3. Nonfocal peripheral exam. Cranial nerves II-XII are grossly intact. ASSESSMENT/PLAN The patient is an 81-year-old female status post fall with positive urinalysis, leukocytosis and a few loops of small bowl incidentally on a CT scan consistent with a mild ileus. The patient likely developed urinary tract infection and developed weakness and dehydration as well as a mild ileus which could have contributed to her fall. I agree with current management with IV rehydration, NG tube placement and appropriate analgesics. Again, the patient most likely has an ileus and clinically does not have a bowel obstruction. If the patient remains stable over the next 24 hours or until later today, we could likely discontinue her NG tube and place her on clear liquid diet. Again, if the patient continues to pass flatus and has some signs of resolution of her ileus. The patient is currently on antibiotics for possible urinary tract infection. I agree with the current management. We will follow along intermittently and please call if the patient needs any further assistance. MD AIRC Maritnez/REBEKAH /1:54 AM /8:33 AM
[2017-08-13] MEDS: DOCUSATE SODIUM 50 MG/SENNA 8.6 MG TAB PO SCH ×2 (09:32→20:24)
[2017-08-13 09:51] LABS: APTT (PATIENT) 29.5 SEC (24.3-30.1); INTERNATIONAL NORMALIZED RATIO 1.2 RATIO; PROTHROMBIN TIME - PATIENT 13.7 SEC (9.8-11.6)
--- NOTE | 2017-08-13 10:23 | RADRPT ---
EXAM DATE/TIME: 08/13/2017 09:56 [facility] COMPARISON: CT ABDOMEN & PELVIS W CONTRAST, August 12, 2017, 16:31. INDICATIONS : abdominal pain across lower belly. MEDICAL HISTORY : Cardiovascular disease. Hypertension. Afib, ZORAN, Restless leg SURGICAL HISTORY : Hysterectomy. ENCOUNTER: Initial ACUITY: 2 months PAIN SCORE: 8/10 LOCATION: Bilateral lower FINDINGS: Supine and upright views of the abdomen were performed. There continues to be several dilated loops o f small bowel in the midabdomen. This was recently demonstrated on a CT scan of the abdomen and pelvi s of 08/12/2016. The colon is nondilated. There is stool in the colon. There is no evidence of free a ir. There are some air-fluid levels on the upright study. Compared to the management liaison film of the CT there may be some mild improvement in the bowel distention. Lung bases are grossly clear. There is evidence of lumbar spinal surgery with fusion. There is an NG tube in place with the tip at the GE junction. Recommend advanced the NG tube 10-15 cm.. CONCLUSION: There continues to be multiple dilated loops of small bowel suggestive of a small bowel obstruction. Compared to the recent prior CT scan, the overall dilatation appears to be mildly improved. There is an NG tube in place. However, the tip is at the GE junction. Recommend advancing the NG tube about 10 -15 cm to position the NG tube into the stomach.. Elvin Little MD on August 13, 2017 at 10:18 Board Certified Radiologist. This report was verified electronically.
[2017-08-13] MEDS: ENOXAPARIN SODIUM 30 MG/0.3 ML SYRINGE SQ SCH ×2 (10:57→20:25)
[2017-08-13] MEDS ORDERED: ACETAMINOPHEN/HYDROcodone 325 MG/5 MG TAB PO PRN (15:00)
--- NOTE | 2017-08-13 15:07 | HHI.HP ---
[facility] Kamla Day MD Admission Diagnosis small bowel obstruction Diagnoses: (1) Small bowel obstruction Diagnosis: Principal (2) Urinary tract infection Diagnosis: Principal (3) Hyponatremia Diagnosis: Principal (4) Atrial fibrillation Diagnosis: Principal Chief Complaint: Fall at home, abdominal pain, nausea vomiting Travel History International Travel<30 Days: No Contact w/Intl Traveler <30 Da: No Traveled to Known Affected Are: No History of Present Illness Written by Burak Jessica, acting as scribe for Dr. Walker on 08/13/17 at 15:00. 81-year-old female with known history of hypertension, chronic atrial fibrillation, history of DVT, chronic obstructive pulmonary disease, hypothyroidism, restless leg syndrome, recurrent falls who presented to the hospital because of nausea vomiting. Patient states that she was in her normal state of health and she was at home where she went to stand up and she actually fell backwards landing onto her right hip. The patient was able to get up without any problems and was ambulating around the house. She usually uses a cane to ambulate. Patient then started developing some nausea and vomited, because of that reason she pushed red button for [facility] to come and evaluate her. Patient does have history of falls in which she does fall forward. She states that she falls because her left leg gives out on her. This is the first time she ever fell backwards. She denied any loss of consciousness, head injury. Patient did have episode of nausea and vomiting. She denied any abdominal pain, hematemesis, chest pain, palpitations, diarrhea, melena, hematochezia. Patient has had normal bowel movements which is usually 1 time a day. She had a hard brown bowel movement yesterday. She is passing gas. She also had a normal bowel movement in the emergency department. She indicates that her vomit was green in color. Patient had workup done and CT scan indicated high-grade partial small bowel obstruction. Patient had NG tube placed and thus far 350 mL's of black stomach content. 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 Review of Systems Gastrointestinal: COMPLAINS OF: Abdominal pain, Nausea, Vomiting Musculoskeletal: COMPLAINS OF: Joint pain Except as stated in HPI: all other systems reviewed are Neg Past Family Social History Past Medical History Hypertension Chronic atrial fibrillation History congestive heart failure History DVT Hypothyroidism Chronic obstructive pulmonary disease Restless leg syndrome Past Surgical History Partial hysterectomy Left hip repair Spinal fusion Thyroidectomy Duodenal resection with primary anastomosis Jejunostomy tube placement Enucleation of pancreatic cyst Common femoral arterectomy and transfemoral embolectomy of the popliteal, anterior and posterior tibial arteries Allergies: Coded Allergies: Sulfa (Sulfonamide Antibiotics) (Unverified Allergy, Severe, RASH, ) CAN'T REMEMBER penicillin G (Unverified Allergy, Severe, RASH, 08/12/17) CAN'T REMEMBER aspirin (Unverified Allergy, Intermediate, RASH, 08/12/17) Family History Reviewed is significant for mother with CVA, father with cancer Social History Patient states that she is to smoke but never inhaled. Drinks wine daily with dinner. Denies any illicit drugs Physical Exam Vital Signs Vital Signs Date Time Temp Pulse Resp B/P (MAP) Pulse Ox O2 Delivery O2 Flow Rate FiO2 08/13/17 12:32 98.0 60 12 125/55 (78) 08/13/17 12:32 60 08/13/17 12:00 70 08/13/17 11:00 60 08/13/17 10:25 140/65 (90) 08/13/17 09:00 58 08/13/17 08:30 100 Nasal Cannula 2.00 08/13/17 08:00 100 Nasal Cannula 3.00 08/13/17 08:00 66 08/13/17 07:45 97.9 58 40 146/56 (86) 100 08/13/17 07:00 58 08/13/17 06:00 60 08/13/17 05:00 58 08/13/17 04:00 60 08/13/17 03:45 60 08/13/17 03:45 98.0 60 16 136/65 (88) 100 08/13/17 02:20 100 Nasal Cannula 3.00 08/13/17 02:15 98 Nasal Cannula 3.00 08/13/17 02:00 56 08/13/17 01:00 54 08/13/17 00:00 98.2 64 48 143/60 (87) 100 08/13/17 00:00 60 08/12/17 23:00 60 08/12/17 22:35 98 Venturi Mask 40 08/12/17 22:00 62 08/12/17 22:00 97.9 62 15 145/59 (87) 99 08/12/17 21:40 100 Venturi Mask 50 08/12/17 21:32 62 18 144/63 (90) 97 08/12/17 21:30 97 Venturi Mask 50 08/12/17 20:07 62 12 137/58 (84) 98 Venturi Mask 50 08/12/17 19:05 94 Venturi Mask 50 08/12/17 18:46 62 18 133/64 (87) 93 Room Air 08/12/17 16:50 62 18 123/60 (81) 93 Room Air 08/12/17 14:59 97.5 60 18 95/60 (72) 93 Physical Exam GENERAL: Well-developed, frail and cachectic, in no acute distress. alert and orientated HEENT: Head is normocephalic without any lesions or masses noted. Facial features are symmetric. Eyes: Pupils equal round reactive to light. Extraocular muscles are intact. Conjunctivae were clear. Oropharyngeal: Pharynx without any erythema edema. Tongue is midline without deviation. Buccal mucosa is moist without any masses or lesions NECK: Supple without any masses. Trachea midline no deviation. No JVD, no bruits are appreciated CARDIAC: Regular rhythm, regular rate. S1/S2 are heard. No murmurs gallops or rubs. LUNGS: Clear to auscultation bilaterally. No wheeze, rhonchi or rales. No use of accessory muscles on inspiration or expiration. ABDOMEN: Soft, nontender. Nondistended. Bowel sounds heard in all 4 quadrants. No organomegaly or masses. Negative rebound, negative guarding EXTREMITIES: No edema, pulses are equal bilaterally. No cyanosis or clubbing. Right knee crepitance on range of motion NEUROLOGY: Mood and affect appear appropriate. No facial droop, no slurred speech. Muscle strength 5/5 in upper and lower extremities bilaterally. Laboratory Laboratory Tests Test 08/12/17 18:15 08/12/17 20:00 08/12/17 20:40 08/13/17 05:30 White Blood Count 12.8 11.6 Red Blood Count 3.67 3.52 Hemoglobin 11.1 10.4 Hematocrit 33.5 32.5 Mean Corpuscular Volume 91.4 92.1 Mean Corpuscular Hemoglobin 30.2 29.4 Mean Corpuscular Hemoglobin Concent 33.0 32.0 Red Cell Distribution Width 14.0 14.1 Platelet Count 251 227 Mean Platelet Volume 8.8 8.7 CBC Comment AUTO DIFF DIFF FINAL Differential Total Cells Counted 100 Neutrophils % (Manual) 83 Band Neutrophils % 12 Lymphocytes % 1 Monocytes % 4 Neutrophils # (Manual) 12.2 Differential Comment FINAL DIFF MANUAL Platelet Estimate NORMAL Platelet Morphology Comment NORMAL Blood Urea Nitrogen 18 15 Creatinine 0.69 0.61 Random Glucose 92 83 Total Protein 7.1 6.5 Albumin 3.4 2.9 Calcium Level 8.8 8.6 Alkaline Phosphatase 62 57 Aspartate Amino Transf (AST/SGOT) 43 39 Alanine Aminotransferase (ALT/SGPT) 28 24 Total Bilirubin 0.9 0.9 Sodium Level 127 128 Potassium Level 4.5 4.2 Chloride Level 87 91 Carbon Dioxide Level 34.8 30.4 Anion Gap 5 7 Estimat Glomerular Filtration Rate 81 94 Lactic Acid Level 1.3 0.8 Urine Collection Type CLEAN CATCH Urine Color YELLOW Urine Turbidity SLIGHT Urine pH GREATER/EQUAL 9.0 Urine Specific [place] GREATER THAN 1.035 Urine Protein TRACE Urine Glucose (UA) NEG Urine Ketones NEG Urine Occult Blood TRACE Urine Nitrite POS Urine Bilirubin NEG Urine Leukocyte Esterase NEG Urine WBC 3-5 Urine Squamous Epithelial Cells 2-4 Urine Triple Phosphate Crystals MANY Urine Bacteria FEW Microscopic Urinalysis Comment CULTURE INDICATED Neutrophils (%) (Auto) 81.4 Lymphocytes (%) (Auto) 4.9 Monocytes (%) (Auto) 12.0 Eosinophils (%) (Auto) 0.1 Basophils (%) (Auto) 1.6 Neutrophils # (Auto) 9.4 Lymphocytes # (Auto) 0.6 Monocytes # (Auto) 1.4 Eosinophils # (Auto) 0.0 Basophils # (Auto) 0.2 Test 08/13/17 09:30 Prothrombin Time 13.7 Prothromb Time International Ratio 1.2 Activated Partial Thromboplast Time 29.5 Date/Time Source Procedure Growth Status 08/12/17 20:00 Blood Peripheral Aerobic Blood Culture - Preliminary NO GROWTH IN 1 DAY Resulted 08/12/17 20:00 Blood Peripheral Anaerobic Blood Culture - Preliminary NO GROWTH IN 1 DAY Resulted 08/12/17 20:40 Urine Clean Catch Urine Culture Pending Received Result Diagram: 08/13/17 0530 08/13/17 0530 Imaging Last Impressions Lumbar Spine CT 08/12/17 0000 Signed Impressions: Service Date/Time: Saturday, August 12, 2017 16:31 - CONCLUSION: 1. Status post lumbar fusion from L3-S1 with significant metallic artifact obscuring the bony and soft tissue structures. 2. Stable exam without evidence of acute fracture or traumatic subluxation. 3. Advanced degenerative disc disease at L2-3. 1. Eugene Macias MD Hip and Pelvis X-Ray 08/12/17 0000 Signed Impressions: Service Date/Time: Saturday, August 12, 2017 16:12 - CONCLUSION: 1. There is no evidence of acute fracture. Phil Reed MD Head CT 08/12/17 0000 Signed Impressions: Service Date/Time: Saturday, August 12, 2017 16:25 - CONCLUSION: No acute disease. No evidence of acute infarct, hemorrhage, mass or edema. Eugene Macias MD Chest X-Ray 08/12/17 0000 Signed Impressions: Service Date/Time: Saturday, August 12, 2017 16:12 - CONCLUSION: 1. Cardiomegaly Chronic fibrotic changes bilaterally unchanged from the prior study. No acute pulmonary disease. Phil Reed MD Abdomen/Pelvis CT 08/12/17 0000 Signed Impressions: Service Date/Time: Saturday, August 12, 2017 16:31 - CONCLUSION: 1. Proximal to mid small bowel ileus characteristic of a high grade partial small bowel obstruction. Etiology of obstruction is not clearly visualized. 2. Pancreatic cysts 3. No evidence of extraintestinal fluid collections, free air or suspicious mass. Eugene Macias MD [place] VTE Risk Assessment Caprini VTE Risk Assessment: Mod/High Risk (score >= 2) Caprini Risk Assessment Model Point Value = 1 Point Value = 2 Point Value = 3 Point Value = 5 Age 41-60 Minor surgery BMI > 25 kg/m2 Swollen legs Varicose veins or History of unexplained or recurrent spontaneous Oral contraceptives or hormone replacement Sepsis (< 1 month) Serious lung disease, including pneumonia (< 1 month) Abnormal pulmonary function Acute myocardial infarction Congestive heart failure (< 1 month) History of inflammatory bowel disease Medical patient at bed rest Age 61-74 Arthroscopic surgery Major open surgery (> 45 min) Laparoscopic surgery (> 45 min) Malignancy Confined to bed (> 72 hours) Immobilizing plaster cast Central venous access Age >= 75 History of VTE Family history of VTE Factor V Leiden Prothrombin 25636A Lupus anticoagulant Anticardiolipin antibodies Elevated serum homocysteine Heparin-induced thrombocytopenia Other congenital or acquired thrombophilia Stroke (< 1 month) Elective arthroplasty Hip, pelvis, or leg fracture Acute spinal cord injury (< 1 month) Prophylaxis Regimen Total Risk Factor Score Risk Level Prophylaxis Regimen 0-1 Low Early ambulation 2 Moderate Order ONE of the following: *Sequential Compression Device (SCD) *Heparin 5000 units SQ BID 3-4 Higher Order ONE of the following medications: *Heparin 5000 units SQ TID *Enoxaparin/Lovenox 40 mg SQ daily (WT < 150 kg, CrCl > 30 mL/min) *Enoxaparin/Lovenox 30 mg SQ daily (WT < 150 kg, CrCl > 10-29 mL/min) *Enoxaparin/Lovenox 30 mg SQ BID (WT < 150 kg, CrCl > 30 mL/min) AND/OR *Sequential Compression Device (SCD) 5 or more Highest Order ONE of the following medications: *Heparin 5000 units SQ TID (Preferred with Epidurals) *Enoxaparin/Lovenox 40 mg SQ daily (WT < 150 kg, CrCl > 30 mL/min) *Enoxaparin/Lovenox 30 mg SQ daily (WT < 150 kg, CrCl > 10-29 mL/min) *Enoxaparin/Lovenox 30 mg SQ BID (WT < 150 kg, CrCl > 30 mL/min) AND *Sequential Compression Device (SCD) Assessment and Plan Assessment and Plan High-grade partial small bowel obstruction CT scan shows show proximal to mid small bowel ileus characteristic of high- grade partial small bowel obstruction. General surgery consulted who indicates the patient likely has a mild ileus. Recommending management, IV fluids, NG tube placement, pain control Follow-up abdominal x-ray continues to show multiple dilated loops of small bowel subjective of small bowel obstruction. Advance NG tube 10-15 cm No indications of infx or bowel perforation, therefore no indications for abx - stopping Clinically does NOT have a UTI; urine likely contaminant/monitor for symptoms and f/u urine culture. Stopping abx for now. Hypoxia - unsure if this is acute or chronic and undiagnosed - loop distention may worsen, monitor and wean Leukocytosis Continue monitor CBC Hyponatremia Appears be chronic for at least the last year Continue monitor sodium level Chronic atrial fibrillation, hypertension Unable to give by mouth medications this time Rate is controlled Start Lovenox for anticoagulation Hypothyroidism Unable to give by mouth medications time May try po synthroid if tolerable w/ NG, otherwise will have to resort to IV. DVT prevention Patient was on Xarelto, continue subcutaneous Lovenox This note was transcribed by lien Jessica. I, Noe Walker, personally performed the history, physical exam, and medical decision making; and confirmed the accuracy of information in the transcribed note. Authenticated by Noe Walker on 6:30 PM on 08/13/17. I independently reviewed the CT scan which shows moderate amount of stool retention. Physician Certification 2 Midnight Certification Type: Admission for Inpatient Services Order for Inpatient Services The services are ordered in accordance with Medicare regulations or non- Medicare payer requirements, as applicable. In the case of services not specified as inpatient-only, they are appropriately provided as inpatient services in accordance with the 2-midnight benchmark. Estimated LOS (days): 2 days is the estimated time the patient will need to remain in the hospital, assuming treatment plan goals are met and no additional complications. Post-Hospital Plan: Not yet determined Burak Jessica Aug 13, 2017 15:07 Noe Walker MD Aug 13, 2017 21:46
[2017-08-13] MEDS ORDERED: MORPHINE SULFATE 4 MG/ML INJ IV PUSH PRN (15:15)
[2017-08-14] VITALS (12 sets, daily range): BP systolic 126–142; BP diastolic 46–66; PULSE 62–70; RESP 14–26; TEMP 97.5–98.1; O2SAT 98–100
[2017-08-14 05:52] LABS: AUTOMATED NEUTROPHIL # 10.1 TH/MM3 (1.8-7.7); BASOPHIL # 0.1 TH/MM3 (0-0.2); BASOPHIL % 0.7 % (0.0-2.0); EOSINOPHIL % 0.2 % (0.0-4.0); HEMATOCRIT 34.8 % (35.0-46.0); LYMPH % 4.4 % (9.0-44.0); LYMPHOCYTE # 0.5 TH/MM3 (1.0-4.8); MEAN CELL VOLUME 92.7 FL (80.0-100.0); MEAN CORPUSCULAR HEMOGLOBIN 29.6 PG (27.0-34.0); MEAN CORPUSCULAR HGB CONC 31.9 % (32.0-36.0); MONO % 10.8 % (0.0-8.0); NEUT % 83.9 % (16.0-70.0); PLATELET COUNT 203 TH/MM3 (150-450); RED BLOOD COUNT 3.76 MIL/MM3 (4.00-5.30); RED CELL DISTRIBUTION WIDTH 14.6 % (11.6-17.2)
[2017-08-14 05:58] LABS: POTASSIUM 3.8 MEQ/L (3.5-5.1)
[2017-08-14 06:01] LABS: BICARBONATE 32.3 MEQ/L (21.0-32.0)
[2017-08-14 06:20] LABS: HEMO FLAGS DIFF FINAL
[2017-08-14 06:26] LABS: MAGNESIUM 1.7 MG/DL (1.5-2.5)
[2017-08-14] MEDS ORDERED: DEXTROSE 50% IN WATER 50 ML SYRINGE ONE (06:37)
[2017-08-14] MEDS ORDERED: DEXTROSE 50% IN WATER 50 ML VIAL(D50) IV SCH (07:00)
[2017-08-14] MEDS: ENOXAPARIN SODIUM 30 MG/0.3 ML SYRINGE SQ SCH ×2 (09:51→23:28)
[2017-08-14] MEDS: SODIUM CHLORIDE 0.9% FLUSH 10 ML FLUSH IV FLUSH SCH ×2 (09:51→21:00)
--- NOTE | 2017-08-14 09:51 | RADRPT ---
EXAM DATE/TIME: 08/14/2017 09:00 [facility] COMPARISON: ABDOMEN FLAT & UPRIGHT, August 13, 2017, 9:56. INDICATIONS : Abdominal pain MEDICAL HISTORY : Cardiovascular disease. Hypertension. Afib, ZORAN, Restless leg. SURGICAL HISTORY : Hysterectomy. ENCOUNTER: Initial ACUITY: 2 days PAIN SCORE: 8/10 LOCATION: Bilateral Abdomen FINDINGS: Supine and upright views of the abdomen were performed. Nasogastric tube tip in stomach. Are some mil dly dilated loops of bowel in the left abdomen but improved from previous study. There is air in the left colon. The visualized lower lungs demonstrates bibasilar densities and small pleural effusions. No evidence of free intraperitoneal gas. The osseous structures are unremarkable. CONCLUSION: 1. Mildly prominent loops of bowel the left mid abdomen but improved from previous study. No definite obstruction. 2. Bibasilar densities and small pleural effusions. Gm Chavarria MD on August 14, 2017 at 9:46 Board Certified Radiologist. This report was verified electronically.
[2017-08-14] MEDS: DOCUSATE SODIUM 50 MG/SENNA 8.6 MG TAB PO SCH ×2 (09:52→23:31)
[2017-08-14] MEDS: DEXT 5%-NACL 0.45% 1000 ML INJ 1,000 ML IV SCH ×2 (10:26→18:55)
[2017-08-14] MEDS ORDERED: NON-FORMULARY DRUG (Coenzyme Q10 (Ubidecarenone) (Co Q 10) 200 MG) PO SCH (14:00)
--- NOTE | 2017-08-14 14:03 | HHI.PR ---
Subjective Remarks Nursing denies any acute deterioration since last night. Patient self denies any nausea vomiting this morning. Relayed by nursing that Gen. surgery feels that this may be more of an ileus and to perform trial of clear liquids when appropriate. Objective Vital Signs Date Time Temp Pulse Resp B/P (MAP) Pulse Ox O2 Delivery O2 Flow Rate FiO2 08/14/17 12:00 67 08/14/17 11:00 97.8 67 18 137/46 (76) 98 08/14/17 08:00 70 08/14/17 07:47 100 Nasal Cannula 3.00 08/14/17 07:00 97.6 70 26 142/63 (89) 100 08/14/17 07:00 100 Nasal Cannula 2.00 08/14/17 04:00 70 08/14/17 04:00 98.1 66 20 126/56 (79) 100 08/14/17 00:00 70 08/13/17 23:52 97.8 66 22 126/87 (100) 100 08/13/17 20:00 67 08/13/17 20:00 98.1 66 25 127/63 (84) 99 08/13/17 19:55 100 Nasal Cannula 2.00 08/13/17 19:00 100 Nasal Cannula 1.00 08/13/17 16:11 98.2 62 24 102/51 (68) 100 08/13/17 16:00 60 08/13/17 15:28 18 08/13/17 15:00 64 08/13/17 14:26 62 18 124/55 (78) 98 08/13/17 14:00 60 I/O 08/13/17 08/13/17 08/13/17 08/14/17 08/14/17 08/14/17 07:00 15:00 23:00 07:00 15:00 23:00 Intake Total 1335 ml 800 ml 198 ml 1016 ml Output Total 900 ml 552 ml 1025 ml Balance 435 ml 800 ml -354 ml -9 ml Intake Oral 0 ml 0 ml IV Total 1335 ml 800 ml 198 ml 1016 ml Output Urine Total 575 ml 2 ml 625 ml Gastric Drainage Total 325 ml 450 ml 400 ml Emesis 100 ml Result Diagram: 08/14/1744408/14/17444 Imaging Last Impressions Abdomen X-Ray 08/14/17 0600 Signed Impressions: Service Date/Time: Monday, August 14, 2017 09:00 - CONCLUSION: 1. Mildly prominent loops of bowel the left mid abdomen but improved from previous study. No definite obstruction. 2. Bibasilar densities and small pleural effusions. Gm Chavarria MD Lumbar Spine CT 08/12/17 0000 Signed Impressions: Service Date/Time: Saturday, August 12, 2017 16:31 - CONCLUSION: 1. Status post lumbar fusion from L3-S1 with significant metallic artifact obscuring the bony and soft tissue structures. 2. Stable exam without evidence of acute fracture or traumatic subluxation. 3. Advanced degenerative disc disease at L2-3. 1. Eugene Macias MD Hip and Pelvis X-Ray 08/12/17 0000 Signed Impressions: Service Date/Time: Saturday, August 12, 2017 16:12 - CONCLUSION: 1. There is no evidence of acute fracture. Phil Reed MD Head CT 08/12/17 0000 Signed Impressions: Service Date/Time: Saturday, August 12, 2017 16:25 - CONCLUSION: No acute disease. No evidence of acute infarct, hemorrhage, mass or edema. Eugene Macias MD Chest X-Ray 08/12/17 Signed Impressions: Service Date/Time: Saturday, August 12, 2017 16:12 - CONCLUSION: 1. Cardiomegaly Chronic fibrotic changes bilaterally unchanged from the prior study. No acute pulmonary disease. Phil Reed MD Abdomen/Pelvis CT 08/12/17 0000 Signed Impressions: Service Date/Time: Saturday, August 12, 2017 16:31 - CONCLUSION: 1. Proximal to mid small bowel ileus characteristic of a high grade partial small bowel obstruction. Etiology of obstruction is not clearly visualized. 2. Pancreatic cysts 3. No evidence of extraintestinal fluid collections, free air or suspicious mass. Eugene Macias MD Objective Remarks Patient lying in bed, awake, alert, NG tube in place No acute distress Abdomen is soft, no tenderness to palpation, nondistended, bowel sounds slow but positive. A/P Assessment and Plan intractable N/V - improving I independently reviewed the Repeat plain film this from this morning which shows very mild improvement in bowel loop dilation Patient tolerating clear liquid trial this morning well - NG tube has been clamped - will continue with clear liquids for tonight as well, if tolerates well, will withdraw NG tube tomorrow morning with trial of soft breakfast if Gen. Surgery feels is appropriate then. No indications of infx or bowel perforation, therefore no indications for abx - stopping Gen. surg following. Clinically does NOT have a UTI; urine likely contaminant/monitor for symptoms and f/u urine culture. abx stopped since yesterday. Hyponatremia Appears be chronic for at least the last year Continue monitor sodium level Chronic atrial fibrillation, hypertension Rate is controlled off of diltiazem for right now Lovenox for anticoagulation Hypothyroidism May try po synthroid if tolerable w/ NG, otherwise will have to resort to IV. DVT prevention Patient was on Xarelto, continue subcutaneous Lovenox while inpt Noe Walker MD Aug 14, 2017 14:03
[2017-08-14] MEDS: LEVOTHYROXINE SODIUM 25 MCG TAB PO SCH (15:00)
--- NOTE | 2017-08-14 15:32 | HHI.PR ---
Subjective Subjective Notes no BM Objective Vitals/I&O Vital Signs Date Time Temp Pulse Resp B/P (MAP) Pulse Ox O2 Delivery O2 Flow Rate FiO2 08/14/17 12:00 67 08/14/17 11:00 97.8 18 137/46 (76) 98 08/14/17 07:47 Nasal Cannula 3.00 08/12/17 22:35 40 Labs Laboratory Tests Test 08/14/17 04:45 White Blood Count 12.0 Red Blood Count 3.76 Hemoglobin 11.1 Hematocrit 34.8 Mean Corpuscular Volume 92.7 Mean Corpuscular Hemoglobin 29.6 Mean Corpuscular Hemoglobin Concent 31.9 Red Cell Distribution Width 14.6 Platelet Count 203 Mean Platelet Volume 9.4 Neutrophils (%) (Auto) 83.9 Lymphocytes (%) (Auto) 4.4 Monocytes (%) (Auto) 10.8 Eosinophils (%) (Auto) 0.2 Basophils (%) (Auto) 0.7 Neutrophils # (Auto) 10.1 Lymphocytes # (Auto) 0.5 Monocytes # (Auto) 1.3 Eosinophils # (Auto) 0.0 Basophils # (Auto) 0.1 CBC Comment DIFF FINAL Differential Comment Blood Urea Nitrogen 18 Creatinine 0.50 Random Glucose 30 Calcium Level 8.8 Magnesium Level 1.7 Sodium Level 136 Potassium Level 3.8 Chloride Level 96 Carbon Dioxide Level 32.3 Anion Gap 8 Estimat Glomerular Filtration Rate 118 B-Type Natriuretic Peptide 406 Date/Time Source Procedure Growth Status 08/12/17 20:00 Blood Peripheral Aerobic Blood Culture - Preliminary NO GROWTH IN 2 DAYS Resulted 08/12/17 20:00 Blood Peripheral Anaerobic Blood Culture - Preliminary NO GROWTH IN 2 DAYS Resulted 08/12/17 20:40 Urine Clean Catch Urine Culture - Final 50-100,000 CFU/ML MIXED ROBYN... Complete Abdomen: Non-distended, Non-tender A/P Assessment and Plan 81yo female with UTI, likely ileus, stable. still no BM or flatus, continue supportive care and abx doubt adhesive bowel obstruction, will sign off Simone Astudillo MD Aug 14, 2017 15:32
[2017-08-14] MEDS: RESP: ALBUTEROL 2.5 MG/IPRATROPIUM 0.5 MG NEB (SCH) NEB ×2 (15:35→20:21)
[2017-08-15] VITALS (8 sets, daily range): BP systolic 97–127; BP diastolic 43–57; PULSE 47–59; RESP 12–25; TEMP 97.4–98.2; O2SAT 96–100
[2017-08-15] MEDS: DEXT 5%-NACL 0.45% 1000 ML INJ 1,000 ML IV SCH (03:19)
[2017-08-15] MEDS: LEVOTHYROXINE SODIUM 25 MCG TAB PO SCH (06:22)
[2017-08-15] MEDS: RESP: ALBUTEROL 2.5 MG/IPRATROPIUM 0.5 MG NEB (SCH) NEB ×3 (08:05→20:31)
[2017-08-15] MEDS: SODIUM CHLORIDE 0.9% FLUSH 10 ML FLUSH IV FLUSH SCH ×2 (09:00→20:21)
[2017-08-15] MEDS: DILTIAZEM-CD 180 MG CAP ER PO SCH (09:32)
[2017-08-15] MEDS: ENOXAPARIN SODIUM 30 MG/0.3 ML SYRINGE SQ SCH (09:32)
[2017-08-15] MEDS: DOCUSATE SODIUM 50 MG/SENNA 8.6 MG TAB PO SCH ×2 (09:32→20:21)
--- NOTE | 2017-08-15 10:24 | HHI.PR ---
Subjective Remarks Nursing denies any acute deterioration since last night. Patient self denies any nausea vomiting this morning. Pt tolerated clears well yesterday with NG clamped. Patient denies having any significant dyspnea on exertion on a good day at home. Objective Vital Signs Date Time Temp Pulse Resp B/P (MAP) Pulse Ox O2 Delivery O2 Flow Rate FiO2 08/15/17 08:06 97 Nasal Cannula 2.00 08/15/17 08:00 56 08/15/17 08:00 97.4 56 25 117/53 (74) 100 08/15/17 07:00 100 Nasal Cannula 2.00 08/15/17 04:00 98.2 58 16 101/48 (65) 100 08/15/17 04:00 58 08/15/17 00:00 97.6 58 21 127/57 (80) 100 08/15/17 00:00 59 08/14/17 20:21 100 Nasal Cannula 2.00 08/14/17 20:00 97.5 64 14 134/60 (84) 99 08/14/17 20:00 100 Nasal Cannula 2.00 08/14/17 20:00 62 08/14/17 16:03 100 Nasal Cannula 2.00 08/14/17 16:00 62 08/14/17 15:00 97.8 62 19 138/66 (90) 99 08/14/17 12:00 67 08/14/17 11:00 97.8 67 18 137/46 (76) 98 I/O 08/14/17 08/14/17 08/14/17 08/15/17 08/15/17 08/15/17 07:00 15:00 23:00 07:00 15:00 23:00 Intake Total 1016 ml 100 ml 935 ml 900 ml Output Total 1025 ml 250 ml Balance -9 ml 100 ml 935 ml 650 ml Intake Oral 0 ml 480 ml 100 ml IV Total 1016 ml 100 ml 455 ml 800 ml Output Urine Total 625 ml 250 ml Gastric Drainage Total 400 ml 0 ml # Voids 2 2 # Bowel Movements 0 Result Diagram: 08/14/175 08/14/17444 Objective Remarks Patient lying in bed, awake, alert, NG tube in place No acute distress Abdomen is soft, no tenderness to palpation, nondistended, bowel sounds slow but positive. Unlabored breathing, breath sounds are clear only in apices bilaterally, unable to appreciate adequate breath sounds in middle and bilateral bases A/P Assessment and Plan intractable N/V 2/2 ileus - N/V resolved, still awaiting BM. Discussed case with general surgery, feels that the patient has an ileus and related that she had a significant prolonged postoperative ileus in the past. Agrees to plan to withdraw NG tube and continue clears for another day, has no objections to my plan for glycerin suppository to help facilitate BM. Hypoxia - echo is complete, awaiting report. Clinically might be slightly fluid overloaded, we'll perform trial of Lasix. Unlikely patient has a pulmonary embolism given lack of symptoms otherwise and especially since she is on Lovenox twice a day. Continuing duo nebs. Hypoglycemia - possibly lab error since patient was remarkably asymptomatic for blood serum glucose of 30 and since subsequent Accu-Cheks were stable blood sugars over 100, we'll suspend her D5 infusion this morning and repeat BMP Hyponatremia Appears be chronic for at least the last year Continue monitor sodium level Chronic atrial fibrillation, hypertension Rate is controlled off of diltiazem for right now Lovenox for anticoagulation Hypothyroidism Resume home Synthroid by mouth DVT prevention Patient was on Xarelto, continue subcutaneous Lovenox while inpt Noe Walker MD Aug 15, 2017 10:24
[2017-08-15] MEDS ORDERED: FUROSEMIDE 20 MG/2 ML VIAL IV PUSH ONE (10:30)
[2017-08-15 11:01] LABS: POTASSIUM 3.4 MEQ/L (3.5-5.1)
[2017-08-15 11:04] LABS: BICARBONATE 32.8 MEQ/L (21.0-32.0)
[2017-08-15] MEDS ORDERED: GLYCERIN ADULT 2 GM SUPP RECTAL ONE (11:30)
--- NOTE | 2017-08-15 11:56 | RADRPT ---
EXAM DATE/TIME: 08/15/2017 11:35 [facility] COMPARISON: CHEST SINGLE AP, August 12, 2017, 16:12. CHEST PA & LAT, July 01, 2016, 10:10. INDICATIONS : Low oxygen saturation. MEDICAL HISTORY : Cardiovascular disease. Hypertension. Afib, ZORAN, Restless leg. SURGICAL HISTORY : Hysterectomy. ENCOUNTER: Initial ACUITY: 3 days PAIN SCORE: 2/10 LOCATION: Bilateral upper chest FINDINGS: PA and lateral views of the chest demonstrates a patchy infiltrate in the right lower lung and left l miah base along with bilateral pleural effusions. These findings are new compared to the prior study o f 08/12/2017. There is some prominence of the pulmonary vasculature. The heart size is enlarged but s table.. CONCLUSION: Interval development of bilateral pleural effusions as well as bibasilar infiltrates, right greater t zhu left. The recent development compared to the prior study is most likely pulmonary edema. Elvin Little MD on August 15, 2017 at 11:52 Board Certified Radiologist. This report was verified electronically.
--- NOTE | 2017-08-15 13:53 | HHI.PR ---
Subjective Subjective Notes Up to chair +BM Tolerating clears Objective Vitals/I&O Vital Signs Date Time Temp Pulse Resp B/P (MAP) Pulse Ox O2 Delivery O2 Flow Rate FiO2 08/15/17 12:00 98.0 57 15 103/53 (70) 100 08/15/17 08:06 Nasal Cannula 2.00 08/12/17 22:35 40 Labs Laboratory Tests Test 08/15/17 10:40 Blood Urea Nitrogen 12 Creatinine 0.55 Random Glucose 117 Calcium Level 8.1 Sodium Level 135 Potassium Level 3.4 Chloride Level 98 Carbon Dioxide Level 32.8 Anion Gap 4 Estimat Glomerular Filtration Rate 106 Date/Time Source Procedure Growth Status 08/12/17 20:00 Blood Peripheral Aerobic Blood Culture - Preliminary NO GROWTH IN 3 DAYS Resulted 08/12/17 20:00 Blood Peripheral Anaerobic Blood Culture - Preliminary NO GROWTH IN 3 DAYS Resulted 08/12/17 20:40 Urine Clean Catch Urine Culture - Final 50-100,000 CFU/ML MIXED ROBYN... Complete Cardiovascular: Regular Lungs: Clear Abdomen: Non-tender, Other (minimally distended ) Extremities: No edema A/P Assessment and Plan 81 year old female with UTI; ileus -Advance to full liquids -OOB and mobilize -Continue non op treatment Haylee Montiel Aug 15, 2017 13:53
--- NOTE | 2017-08-15 14:21 | ECHRPT ---
Indication: shortness of breath CONCLUSIONS There is a flattened septum in diastole consistent with right ventricle volume overload. There is a flattened septum in systole consistent with right ventricle pressure overload. The left ventricular systolic function is hyperdynamic with an estimated ejection fraction in the ra nge of 65- 70%. Wall thickness is normal. No regional wall motion abnormalities are present. The left atrial size is czpx-[id number] dilated. The right atrial size is moderately dilated. Mkhd-gq-zofqwyzs mitral valve regurgitation. Trace aortic valve regurgitation. There is moderate to severe tricuspid valve regurgitation. The estimated pulmonary arterial pressure is 49 mmHg. Trivial pulmonary valve regurgitation. A small left sided pleural effusion is noted. BP: / HR: Rhythm: Sinus MEASUREMENTS (Male / Female) Normal Values Technical Quality:Good 2D ECHO LV Diastolic Diameter PLAX 3.9 cm 4.2 - 5.9 / 3.9 - 5.3 cm LV Systolic Diameter PLAX 2.6 cm IVS Diastolic Thickness 1.0 cm 0.6 - 1.0 / 0.6 - 0.9 cm LVPW Diastolic Thickness 1.0 cm 0.6 - 1.0 / 0.6 - 0.9 cm LV Relative Wall Thickness 0.5 RV Internal Dim ED PLAX 2.7 cm LVOT Diameter 2.0 cm LA Systolic Diameter LX 4.1 cm 3.0 - 4.0 / 2.7 - 3.8 cm LV Ejection Fraction MOD 4C 62.5 % LV Ejection Fraction 4C AL 63.7 % M-MODE Aortic Root Diameter MM 2.8 cm LA Systolic Diameter MM 4.7 cm LA Ao Ratio MM 1.7 AV Cusp Separation MM 1.3 cm DOPPLER AV Peak Velocity 128.0 cm/s AV Peak Gradient 6.6 mmHg LVOT Peak Velocity 91.3 cm/s LVOT Peak Gradient 3.3 mmHg AV Area Cont Eq pk 2.2 cm MV Area PHT 4.2 cm Mitral E Point Velocity 138.0 cm/s Mitral A Point Velocity 45.4 cm/s Mitral E to A Ratio 3.0 LV E' Lateral Velocity 8.0 cm/s Mitral E to LV E' Lateral Ratio 17.3 LV E' Septal Velocity 8.1 cm/s Mitral E to LV E' Septal Ratio 17.1 TR Peak Velocity 312.0 cm/s TR Peak Gradient 38.9 mmHg Right Atrial Pressure 10.0 mmHg Pulmonary Artery Systolic Pressu 48.9 mmHg Right Ventricular Systolic Press 48.9 mmHg PV Peak Velocity 73.3 cm/s PV Peak Gradient 2.1 mmHg FINDINGS LEFT VENTRICLE There is a flattened septum in diastole consistent with right ventricle volume overload. There is a flattened septum in systole consistent with right ventricle pressure overload. The left ventricular systolic function is hyperdynamic with an estimated ejection fraction in the ra nge of 65- 70%. Wall thickness is normal. No regional wall motion abnormalities are present. RIGHT VENTRICLE Normal right ventricular size and systolic function. LEFT ATRIUM The left atrial size is xcpu-kh-dfzclgvwmo dilated. RIGHT ATRIUM The right atrial size is moderately dilated. ATRIAL SEPTUM Normal atrial septal thickness without atrial level shunting by limited color doppler interrogation. AORTA The aortic root and proximal ascending aorta are normal in size on limited imaging. MITRAL VALVE Structurally normal mitral valve. Wcsd-[id number] mitral valve regurgitation. AORTIC VALVE Trileaflet aortic valve. Trace aortic valve regurgitation. TRICUSPID VALVE There is moderate to severe tricuspid valve regurgitation. The estimated pulmonary arterial pressure is 49 mmHg. PULMONARY VALVE Trivial pulmonary valve regurgitation. PERICARDIUM A small left sided pleural effusion is noted. Art Painter MD (Electronically Signed) Final Date:15 August 2017 14:21
[2017-08-15] MEDS: SPIRONOLACTONE 25 MG TAB PO SCH (15:34)
[2017-08-15] MEDS: HYDROCHLOROTHIAZIDE 25 MG TAB PO SCH (15:34)
[2017-08-15] MEDS ORDERED: SPIRONOLACTONE/HCTZ 25 MG/25 MG TAB PO SCH (16:00)
[2017-08-15] MEDS: FUROSEMIDE 40 MG/4 ML VIAL IV PUSH SCH (17:57)
[2017-08-16] VITALS (19 sets, daily range): BP systolic 110–128; BP diastolic 45–72; PULSE 46–62; RESP 14–34; TEMP 97.7–98.6; O2SAT 94–99
[2017-08-16] MEDS: LEVOTHYROXINE SODIUM 25 MCG TAB PO SCH (06:13)
[2017-08-16 06:35] LABS: HEMATOCRIT 30.8 % (35.0-46.0); MEAN CELL VOLUME 94.6 FL (80.0-100.0); MEAN CORPUSCULAR HEMOGLOBIN 30.6 PG (27.0-34.0); MEAN CORPUSCULAR HGB CONC 32.4 % (32.0-36.0); PLATELET COUNT 215 TH/MM3 (150-450); RED BLOOD COUNT 3.26 MIL/MM3 (4.00-5.30); RED CELL DISTRIBUTION WIDTH 14.9 % (11.6-17.2); REVIEW FLAG FINAL; WHITE BLOOD COUNT 8.1 TH/MM3 (4.0-11.0)
[2017-08-16] MEDS: RESP: ALBUTEROL 2.5 MG/IPRATROPIUM 0.5 MG NEB (SCH) NEB ×4 (07:35→19:23)
[2017-08-16] MEDS: DILTIAZEM-CD 180 MG CAP ER PO SCH (07:42)
[2017-08-16] MEDS: SPIRONOLACTONE 25 MG TAB PO SCH (07:42)
[2017-08-16] MEDS: DOCUSATE SODIUM 50 MG/SENNA 8.6 MG TAB PO SCH ×2 (07:42→21:35)
[2017-08-16] MEDS: HYDROCHLOROTHIAZIDE 25 MG TAB PO SCH (07:42)
[2017-08-16] MEDS: SODIUM CHLORIDE 0.9% FLUSH 10 ML FLUSH IV FLUSH SCH ×2 (07:43→21:36)
[2017-08-16] MEDS ORDERED: LIDOCAINE HCL 1% 50 ML VIAL SQ ONE (08:38)
[2017-08-16] MEDS: DEXT 5%-NACL 0.45% 1000 ML INJ 1,000 ML IV SCH (09:04)
--- NOTE | 2017-08-16 09:07 | RADRPT ---
EXAM DATE/TIME: 08/16/2017 08:49 [facility] COMPARISON: CHEST EXPIRATION ONLY, May 17, 2016, 12:43. INDICATIONS : Post thorocentesis MEDICAL HISTORY : Cardiovascular disease. Hypertension. Afib, ZORAN, Restless leg. SURGICAL HISTORY : Hysterectomy. ENCOUNTER: Initial ACUITY: 1 day PAIN SCORE: 0/10 LOCATION: Right chest FINDINGS: A single frontal expiratory view of the chest was performed. The lungs are symmetrically aerated and clear. No evidence of pneumothorax. Mediastinal structures are in the midline. The cardio-mediastinal contours and bronchopulmonary markings are unremarkable for an expiratory exam . Osseous structures are intact. CONCLUSION: Decrease in amount of right pleural effusion There is no pneumothorax. Nilo Burr MD FACR on August 16, 2017 at 9:04 Board Certified Radiologist. This report was verified electronically.
[2017-08-16 10:35] LABS: BICARBONATE 36.5 MEQ/L (21.0-32.0)
--- NOTE | 2017-08-16 10:42 | RADRPT ---
EXAM DATE/TIME: 08/16/2017 08:24 [facility] COMPARISON: EXTERNAL COMPARISON: US GUIDED THORACENTESIS RIGHT, May 16, 2016, 11:32. [facility], CT Chest, Jul 24 2012. PO I, Chest xray, 07/18/2012. INDICATIONS : Right pleural effusion. MEDICAL HISTORY : Afib. CAD. Hypertension SURGICAL HISTORY : Hysterectomy. Thyroidectomy. Thoracentesis. ENCOUNTER: Subsequent ACUITY: 1 day PAIN SCORE: 0/10 LOCATION: Right chest FLUID: Total volume of 625 cc of clear echo fluid was removed. Fluid was discarded. Thoracentesis was therapeutic only. TECHNIQUE: 1. Ultrasound guidance for thoracentesis. 2. Thoracentesis. The risks, benefits, and alternatives to ultrasound guided thoracentesis were explained to the patien t in lay simple terms, including the risk of bleeding and infection. Written and verbal informed con sent was obtained. Appropriate area for thoracentesis was marked under ultrasound guidance with the patient in the uprig ht position. Overlying skin was prepped and draped in the usual sterile fashion and with local anest hetic, a dermatotomy was made with an 11 blade scalpel. A 6 Bangladeshi thoracentesis catheter was placed in the pleural space and fluid was removed. Catheter was then removed and a sterile dressing applie d. There were no immediate complications. The patient tolerated the procedure well and the left the ultrasound suite in stable condition. Chest radiograph is to be obtained. CONCLUSION: Uncomplicated ultrasound guided thoracentesis. Elvin Little MD on August 16, 2017 at 10:40 Board Certified Radiologist. This report was verified electronically.
[2017-08-16] MEDS: FUROSEMIDE 40 MG/4 ML VIAL IV PUSH SCH ×2 (10:43→18:05)
[2017-08-16] MEDS ORDERED: POTASSIUM CHLORIDE 10 MEQ CONTROLLED RELEASE TAB PO ONE ×2 (11:00→18:15)
[2017-08-16] MEDS: METOPROLOL TARTRATE 25 MG TAB PO SCH ×2 (11:15→21:00)
--- NOTE | 2017-08-16 15:00 | RADRPT ---
EXAM DATE/TIME: 08/16/2017 14:18 [facility] COMPARISON: CHEST EXPIRATION ONLY, August 16, 2017, 8:49. EXTERNAL COMPARISON : [facility], CT THORAX, W/O CONTRAST, June 23, 2012CHEST- PA & LAT, July 18, 2012. INDICATIONS : Evaluate for left pleural effusion. MEDICAL HISTORY : Atrial fibrillation. CAD. Hypertension. SURGICAL HISTORY : Hysterectomy. Thyroidectomy. Thoracentesis. ENCOUNTER: Subsequent ACUITY: 1 day PAIN SCORE: 0/10 LOCATION: Left chest MEASUREMENTS: SKIN TO PARIETAL PLEURA: 1.2 cm SKIN TO MAX SAFE DEPTH: 2.8 cm ESTIMATED FLUID VOLUME: 160 cc FLUID COMPOSITION: simple FINDINGS: Small right-sided pleural effusion. Insufficient for thoracentesis. CONCLUSION: Small right pleural effusion. Insufficient for thoracentesis at this time. Elvin Little MD on August 16, 2017 at 14:56 Board Certified Radiologist. This report was verified electronically.
--- NOTE | 2017-08-16 16:53 | HHI.PR ---
Subjective Subjective Notes Up to chair Eating dinner No issues Objective Vitals/I&O Vital Signs Date Time Temp Pulse Resp B/P (MAP) Pulse Ox O2 Delivery O2 Flow Rate FiO2 08/16/17 16:14 57 08/16/17 16:14 98.3 15 114/53 (73) 99 08/16/17 07:38 Nasal Cannula 1.00 08/12/17 22:35 40 Labs Laboratory Tests Test 08/16/17 04:40 White Blood Count 8.1 Red Blood Count 3.26 Hemoglobin 10.0 Hematocrit 30.8 Mean Corpuscular Volume 94.6 Mean Corpuscular Hemoglobin 30.6 Mean Corpuscular Hemoglobin Concent 32.4 Red Cell Distribution Width 14.9 Platelet Count 215 Mean Platelet Volume 8.8 Blood Urea Nitrogen 10 Creatinine 0.54 Random Glucose 85 Calcium Level 8.1 Sodium Level 137 Potassium Level 3.0 Chloride Level 96 Carbon Dioxide Level 36.5 Anion Gap 5 Estimat Glomerular Filtration Rate 108 Date/Time Source Procedure Growth Status 08/12/17 20:00 Blood Peripheral Aerobic Blood Culture - Preliminary NO GROWTH IN 4 DAYS Resulted 08/12/17 20:00 Blood Peripheral Anaerobic Blood Culture - Preliminary NO GROWTH IN 4 DAYS Resulted 08/12/17 20:40 Urine Clean Catch Urine Culture - Final 50-100,000 CFU/ML MIXED ROBYN... Complete Cardiovascular: Regular Lungs: Clear Abdomen: Non-distended, Non-tender Extremities: No edema A/P Assessment and Plan 81 year old female with UTI; ileus -Advance to regular soft diet -OOB and mobilize -Continue non op treatment -GS clear for Haylee Kramer Aug 16, 2017 16:53
[2017-08-16] MEDS ORDERED: methylPREDNISolone SOD SUCC 125 MG/2 ML VIAL IV PUSH ONE (18:00)
--- NOTE | 2017-08-16 18:08 | HHI.PR ---
Subjective Remarks Nursing denies any acute deterioration since last night - patient did have a bowel movement! Patient self denies any nausea vomiting this morning. denies SOB. No N/V. Did well with thoracentesis, draining somewhere over 600 mL's from right lung. Objective Vital Signs Date Time Temp Pulse Resp B/P (MAP) Pulse Ox O2 Delivery O2 Flow Rate FiO2 08/16/17 16:14 57 08/16/17 16:14 98.3 57 15 114/53 (73) 99 08/16/17 12:03 58 08/16/17 12:00 58 21 116/72 (87) 98 08/16/17 09:30 98.6 52 19 116/64 (81) 99 08/16/17 09:15 54 14 124/55 (78) 96 08/16/17 09:00 54 30 124/54 (77) 97 08/16/17 08:00 98.2 57 28 119/53 (75) 94 08/16/17 08:00 57 08/16/17 07:38 98 Nasal Cannula 1.00 08/16/17 07:15 94 Nasal Cannula 1.00 08/16/17 04:10 52 08/16/17 04:00 98.0 46 24 99 08/16/17 03:32 48 24 111/49 (69) 96 08/16/17 02:00 49 08/16/17 00:41 50 20 110/45 (66) 96 08/16/17 00:00 50 08/15/17 20:31 96 Nasal Cannula 1.00 08/15/17 20:00 50 08/15/17 20:00 97 Nasal Cannula 1.00 08/15/17 20:00 97.9 50 15 97/43 (61) 96 I/O 08/15/17 08/15/17 08/15/17 08/16/17 08/16/17 08/16/17 07:00 15:00 23:00 07:00 15:00 23:00 Intake Total 900 ml 480 ml 700 ml Output Total 250 ml 400 ml 600 ml 450 ml 225 ml Balance 650 ml 80 ml 100 ml -450 ml -225 ml Intake Oral 100 ml 480 ml 700 ml IV Total 800 ml Output Urine Total 250 ml 400 ml 600 ml 450 ml 225 ml Gastric Drainage Total 0 ml # Voids 2 4 1 # Bowel Movements 0 1 0 Result Diagram: 08/16/1743908/16/17439 Objective Remarks Patient lying in bed, awake, alert, on NC No acute distress Abdomen is soft, no tenderness to palpation, nondistended, bowel sounds slow but positive. Unlabored breathing, breath sounds are coarse BL with diminshed sounds in the bases, no wheezing A/P Assessment and Plan intractable N/V 2/2 ileus - N/V resolved, Has had a BM! Hypoxia - 2/2 pulmonary edema, improved today, status post right-sided thoracentesis, saturates well on room air at rest, will desaturate to the 80s. We'll give a shot of steroids and consider home oxygen walk test tomorrow morning. Pulmonary edema - secondary to tricuspid regurg and dilated atria, continue Lasix, spironolactone, beta blockers. Too little of a fluid pocket to drain left side per interventional radiology. hypokalemia - diuretic use, replacing Hyponatremia Appears be chronic for at least the last year Continue monitor sodium level Chronic atrial fibrillation, hypertension Rate is controlled off of diltiazem for right now Lovenox for anticoagulation Hypothyroidism home Synthroid by mouth DVT prevention Patient was on Xarelto, continue subcutaneous Lovenox while inpt Noe Walker MD Aug 16, 2017 18:08
[2017-08-16] MEDS ORDERED: ACETAMINOPHEN 325 MG TAB PO PRN (18:15)
[2017-08-16] MEDS: POTASSIUM CHLORIDE 10 MEQ CONTROLLED RELEASE TAB PO SCH (21:35)
[2017-08-17] VITALS (9 sets, daily range): BP systolic 114–135; BP diastolic 52–69; PULSE 52–63; RESP 19–20; TEMP 98–98.6; O2SAT 96–100
[2017-08-17] MEDS: ONDANSETRON HCL 4 MG/2 ML VIAL IV PUSH PRN (01:44)
[2017-08-17] MEDS: LEVOTHYROXINE SODIUM 25 MCG TAB PO SCH (05:17)
[2017-08-17 06:15] LABS: BICARBONATE 40.3 MEQ/L (21.0-32.0); POTASSIUM 4.4 MEQ/L (3.5-5.1)
[2017-08-17] MEDS: RESP: ALBUTEROL 2.5 MG/IPRATROPIUM 0.5 MG NEB (SCH) NEB ×3 (07:43→15:35)
[2017-08-17] MEDS ORDERED: methylPREDNISolone SOD SUCC 125 MG/2 ML VIAL IV PUSH ONE (08:30)
[2017-08-17] MEDS: SPIRONOLACTONE 25 MG TAB PO SCH (08:49)
[2017-08-17] MEDS: DOCUSATE SODIUM 50 MG/SENNA 8.6 MG TAB PO SCH (08:49)
[2017-08-17] MEDS: FUROSEMIDE 40 MG/4 ML VIAL IV PUSH SCH ×2 (08:49→17:10)
[2017-08-17] MEDS: POTASSIUM CHLORIDE 10 MEQ CONTROLLED RELEASE TAB PO SCH (08:49)
[2017-08-17] MEDS: HYDROCHLOROTHIAZIDE 25 MG TAB PO SCH (08:49)
[2017-08-17] MEDS: SODIUM CHLORIDE 0.9% FLUSH 10 ML FLUSH IV FLUSH SCH (08:50)
[2017-08-17] MEDS: METOPROLOL TARTRATE 25 MG TAB PO SCH (08:50)
--- NOTE | 2017-08-17 12:09 | HHI.DCPOC ---
Discharge Care Plan Diagnosis: (1) Frail elderly (2) Pleural effusion (3) Adynamic ileus (4) Atrial fibrillation Goals to Promote Your Health * To prevent worsening of your condition and complications * To maintain your health at the optimal level Directions to Meet Your Goals Take your medications as prescribed Follow your dietary instruction Follow activity as directed Keep your appointments as scheduled Take your immunizations and boosters as scheduled If your symptoms worsen call your PCP, if no PCP go to Urgent Care Center or Emergency Room Smoking is Dangerous to Your Health. Avoid second hand smoke Call the 24-hour hour crisis hotline for domestic abuse at Noe Walker MD Aug 17, 2017 12:09
[2017-08-17] MEDS ORDERED: FURO20TA PO (12:11)
[2017-08-17] MEDS ORDERED: SPIR25TA PO (12:11)
[2017-08-17] MEDS ORDERED: POTA-243 PO (12:11)
--- NOTE | 2017-08-17 12:12 | HHI.DS ---
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 Walker on 08/13/17 at 15:00. 81-year-old female with known history of hypertension, chronic atrial fibrillation, history of DVT, chronic obstructive pulmonary disease, hypothyroidism, restless leg syndrome, recurrent falls who presented to the hospital because of nausea vomiting. Patient states that she was in her normal state of health and she was at home where she went to stand up and she actually fell backwards landing onto her right hip. The patient was able to get up without any problems and was ambulating around the house. She usually uses a cane to ambulate. Patient then started developing some nausea and vomited, because of that reason she pushed red button for [facility] to come and evaluate her. Patient does have history of falls in which she does fall forward. She states that she falls because her left leg gives out on her. This is the first time she ever fell backwards. She denied any loss of consciousness, head injury. Patient did have episode of nausea and vomiting. She denied any abdominal pain, hematemesis, chest pain, palpitations, diarrhea, melena, hematochezia. Patient has had normal bowel movements which is usually 1 time a day. She had a hard brown bowel movement yesterday. She is passing gas. She also had a normal bowel movement in the emergency department. She indicates that her vomit was green in color. Patient had workup done and CT scan indicated high-grade partial small bowel obstruction. Patient had NG tube placed and thus far 350 mL's of black stomach content. 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 CBC/BMP: 08/16/17 0440 08/17/17 0430 Significant Findings Laboratory Tests Test 08/15/17 10:40 08/16/17 04:40 08/17/17 04:30 Random Glucose 117 MG/DL (74-106) 130 MG/DL (74-106) Calcium Level 8.1 MG/DL (8.5-10.1) 8.1 MG/DL (8.5-10.1) Sodium Level 135 MEQ/L (136-145) Potassium Level 3.4 MEQ/L (3.5-5.1) 3.0 MEQ/L (3.5-5.1) Carbon Dioxide Level 32.8 MEQ/L (21.0-32.0) 36.5 MEQ/L (21.0-32.0) 40.3 MEQ/L (21.0-32.0) Anion Gap 4 MEQ/L (5-15) Red Blood Count 3.26 MIL/MM3 (4.00-5.30) Hemoglobin 10.0 GM/DL (11.6-15.3) Hematocrit 30.8 % (35.0-46.0) Chloride Level 96 MEQ/L (98-107) 90 MEQ/L (98-107) Estimat Glomerular Filtration Rate 75 ML/MIN (>89) PE at Discharge sitting in chair, NAD Abdomen is soft, nontender, nondistended Hospital Course 81-year-old white female who was admitted to the hospital for was presumed to be a small bowel obstruction. Surgery was consulted, felt that it was an ileus. Patient initially had an NG tube placed and took at least 24 hours with low to intermittent suction for her symptoms to start improved. She was eventually able to tolerate a clear liquid diet for a whole another 24 hours and had NG tube removed afterwards. Eventually had a bowel movement. However patient was noted to be persistently hypoxic, echocardiogram showed severe tricuspid regurg with dilated atria and an intact ejection fraction. Pleural effusion was noted bilaterally, thoracentesis was performed with 600 mL strain of the right side. Patient's hypoxia eventually resolved with continued diuretic therapy. Patient then began experiencing some sundowning and hospital induced confusion. Home health was being arranged prior to discharge. Patient has met maximum benefit from hospitalization and is clinically stable for discharge home once family medical secretary receptionist and home health are arranged. Pt Condition on Discharge: Stable Discharge Disposition: Disch w/ Home Health Serv Discharge Time: > 30 minutes Discharge Instructions DIET: Follow Instructions for: Heart Healthy Diet Activities you can perform: See Additionl Instruction Other Activity Instructions: Ambulating with home cane Follow up Referrals: Cardiology - 2 Weeks PCP Follow-up - 1 Week Surgical - 2 Weeks with Simone Astudillo MD New Medications: Furosemide (Furosemide) 20 Mg Tab 20 MG PO DAILY for fluid, #30 TAB 0 Refills Spironolactone (Spironolactone) 25 Mg Tab 12.5 MG PO DAILY for heart health, #15 TAB 0 Refills Potassium Chloride ER (Klor-Con 10) 10 Meq Tab 20 MEQ PO BID for low potassium, #60 TAB Continued Medications: Apixaban (Eliquis) 2.5 Mg Tab 2.5 MG PO BID for Blood Clot Prevention, TAB 0 Refills Calcium Carbonate-Cholecalciferol (Calcium 600 with Vitamin D) 600-400 mg-Unit Tab 1 TAB PO DAILY for Calcium Supplement, TAB 0 Refills Coenzyme Q10 (Ubidecarenone) (Co Q 10) 100 Mg Cap 200 MG PO DAILY Isosorbide Mononitrate (Isosorbide Mononitrate) 10 Mg Tab 5 MG PO DAILY for Prevent Chest Pain, #60 TAB Take 2 doses 7 hours apart. Levothyroxine (Levothyroxine) 25 Mcg Tab 25 MCG PO DAILY for Thyroid, #30 TAB 0 Refills Nitroglycerin SL (Nitrostat SL) 0.4 Mg Subl 0.4 MG SL DIRECTED PRN for CHEST PAIN, #100 TAB.SL 0 Refills 1 tablet under the tongue as needed for chest pain. Repeat every 5 minutes for a total of 3 DOSES or call 911 if NO relief. Ropinirole (Ropinirole) 0.25 Mg Tab 0.25 MG PO TID, #90 TAB 0 Refills Discontinued Medications: Diltiazem ER 24 HR (Cartia Xt) 120 Mg Caper 180 MG PO DAILY, #30 CAP 0 Refills Noe Walker MD Aug 17, 2017 12:12
[2017-08-17] MEDS ORDERED: ENOXAPARIN SODIUM 30 MG/0.3 ML SYRINGE SQ ONE (13:00)
--- NOTE | 2017-08-17 16:36 | HHI.FF ---
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 My clinical findings support the need for the requested home health care services because: Ltd mobility - disease progression Limited ability to care for self High risk of falls I certify that my clinical findings support that this patient is homebound because: Unsteady gait/balance Unsafe to leave home unassisted Noe Walker MD Aug 17, 2017 16:36
[2017-08-18] MEDS ORDERED: ENOXAPARIN SODIUM 30 MG/0.3 ML SYRINGE SQ SCH (06:00)
== END 2017-08-17 18:20 | disposition home health service (06) | DRG 389 ==
LOC: PHED 14:52 → PHEDA 19:18 → PHICU 21:20
PROVIDERS: ADMIT Family Medicine; ATTEND Family Medicine
PROC: 0W993ZZ Drainage of Right Pleural Cavity, Percutaneous Approach (ICD-10-PCS; principal; 2017-08-12)
DX: K56.600 Partial intestinal obstruction, unspecified as to cause (principal); N39.0 Urinary tract infection, site not specified; I50.9 Heart failure, unspecified; I48.2 Chronic atrial fibrillation; I11.0 Hypertensive heart disease with heart failure; E86.0 Dehydration; F05 Delirium due to known physiological condition; J44.9 Chronic obstructive pulmonary disease, unspecified; E87.1 Hypo-osmolality and hyponatremia; I07.1 Rheumatic tricuspid insufficiency; R54 Age-related physical debility; E03.9 Hypothyroidism, unspecified; E87.6 Hypokalemia; G25.81 Restless legs syndrome; M19.90 Unspecified osteoarthritis, unspecified site; Z90.710 Acquired absence of both cervix and uterus; K56.0 Paralytic ileus; W19.XXXA Unspecified fall, initial encounter; Y92.009 Unspecified place in unspecified non-institutional (private) residence as the place of occurrence of the external cause; I25.10 Atherosclerotic heart disease of native coronary artery without angina pectoris; R09.02 Hypoxemia; Z86.718 Personal history of other venous thrombosis and embolism; Z98.1 Arthrodesis status
CPT/HCPCS: 32555; 43753; 70450; 71010; 71020; 72131; 73502; 74020; 74177; 76604; 80048; 80053; 81001; 83605; 83735; 83880; 85007; 85025; 85027; 85610; 85730; 87040; 87086; 93306; 94640; 94664; 96361; 96374; 96375; 96376; C1729; J0131; J0744; J1650; J1940; J2270; J2405; J2930; J7030; J7040; Q9967